=== PATIENT | female | born 1945 | race Caucasian/White ===

== ENCOUNTER → 2016-06-10 | Outpatient (CLI) | payer OTHER ==
[~2016-06-10] MED LIST: ALLO300T2 PO; CHOL100027 PO; CITA40TA4 PO; CLOB-65 EXT; COLCPOW6; DMD20 PO; GLC/500 PO; LETR2TAB PO; LEVO100T PO; LPR25 PO; METO5TAB25 PO; MULT-506 PO; POTA-327 PO; SIMV10TA2 PO; TYLENOL RAPID REL PO
--- NOTE | 2016-06-10 14:37 | MAMMOGRAPHY REPORT ---
UNILATERAL LEFT DIGITAL SCREENING MAMMOGRAM TOMOSYNTHESIS WITH CAD: 06/10/2016 CLINICAL HISTORY: Asymptomatic. Personal history of breast cancer. TECHNIQUE: Breast tomosynthesis in addition to standard 2D mammography was performed. Current study was also evaluated with a Computer Aided Detection (CAD) system. COMPARISON: Comparison is made to exams dated: 06/07/2015 mammogram, 06/06/2014 mammogram, 06/03/2013 mammogram, 01/08/2013 mammogram, 05/28/2011 mammogram, and 12/01/2009 mammogram - [facility]. BREAST COMPOSITION: There are scattered areas of fibroglandular density in the left breast. FINDINGS: There is evidence of prior reduction mammoplasty of the left breast. There are mild vascu lar calcifications and scattered benign coarse calcifications. However, there is a possible cluster of microcalcifications in the upper inner posterior (approximate 11:00) left breast for which addit ional spot magnification views are recommended. No other suspicious mass, architectural distortion or cluster of microcalcifications is seen. IMPRESSION: ACR BI-RADS CATEGORY 0: INCOMPLETE EVALUATION: NEED ADDITIONAL IMAGING EVALUATION The possible cluster of microcalcifications in the left 11:00 posterior breast needs additional eval uation. The patient will be called to schedule an appointment. Approximately 10% of breast cancers are not detected with mammography. A negative mammographic repor t should not delay biopsy if a clinically suggestive mass is present. Liliana El M.D. ay/:06/10/2016 09:33:06 Process Control Board Operator: Reina ALFARO)(Tushar), [facility] letter sent: Addl Imaging 0 BI-RADS Code: ACR BI-RADS Category 0: Incomplete Evaluation: Need Additional Imaging Evaluation
== END | disposition home or self-care (01) ==
LOC: C.MAMM 07:08
PROVIDERS: ATTEND Obstetrics & Gynecology
DX: Z12.31 Encounter for screening mammogram for malignant neoplasm of breast (principal); Z85.3 Personal history of malignant neoplasm of breast; Z90.11 Acquired absence of right breast and nipple; R92.8 Other abnormal and inconclusive findings on diagnostic imaging of breast

== ENCOUNTER → 2016-06-13 | Outpatient (CLI) | payer OTHER ==
--- NOTE | 2016-06-13 15:36 | MAMMOGRAPHY REPORT ---
UNILATERAL LEFT DIGITAL DIAGNOSTIC MAMMOGRAM: 06/13/2016 CLINICAL HISTORY: Callback from screening mammogram for left breast calcifications. History of redu ction mammoplasty. TECHNIQUE: Spot magnification left CC and ML views were obtained. COMPARISON: Comparison is made to exams dated: 06/10/2016 mammogram, 06/06/2014 mammogram, 06/07/2015 mammogram, 06/03/2013 mammogram, and 01/08/2013 mammogram - [facility]. BREAST COMPOSITION: There are scattered areas of fibroglandular density in the left breast. FINDINGS: Spot magnification views of the left breast demonstrate a small 3 mm cluster of at least 2 adjacent coarse calcifications in the left upper inner quadrant. The calcifications appear simila r to other scattered coarse benign-appearing calcifications in the left breast. Calcifications are probably benign and likely represent dystrophic calcifications related to the patient's prior reduct ion mammoplasty. Recommend follow-up diagnostic mammograms in 6 months to confirm stability, given the personal history of right breast cancer. IMPRESSION: ACR-BI-RADS CATEGORY 3: PROBABLY BENIGN Small cluster of coarse calcifications in the left upper inner quadrant is probably benign and likel y represent dystrophic calcifications related to prior reduction mammoplasty. Recommend follow-up d iagnostic mammograms of the left breast in 6 months to confirm stability on spot magnification views . The patient has been verbally notified of the results. Approximately 10% of breast cancers are not detected with mammography. A negative mammographic repor t should not delay biopsy if a clinically suggestive mass is present. Val De Oliveira M.D. ah/:06/13/2016 13:44:44 [employer]mediate School Teacher: Camille PAGAN(R)(Tushar), [facility] letter sent: Follow Up Recommended 3 BI-RADS Code: ACR-BI-RADS Category 3: Probably Benign
== END | disposition home or self-care (01) ==
LOC: C.MAMM 13:06
PROVIDERS: ATTEND Obstetrics & Gynecology
DX: R92.1 Mammographic calcification found on diagnostic imaging of breast (principal)

== ENCOUNTER → 2016-08-23 | Outpatient (CLI) | payer OTHER ==
[2016-08-23 12:10] LABS: BLOOD UREA NITROGEN 19 mg/dl (7-18); CARBON DIOXIDE 27 mmol/L (21-32); CHLORIDE 107 mmol/L (98-107); SODIUM 141 mmol/L (136-145)
[2016-08-23 12:13] LABS: CALCIUM 9.9 mg/dl (8.5-10.1)
[2016-08-23 12:43] LABS: ESTIMATED AVERAGE GLUCOSE 154 mg/dl; HA1C FLAG Normal (Normal)
[2016-08-23 12:47] LABS: URIC ACID 4.2 mg/dl (2.6-7.2)
[2016-08-23 12:54] LABS: ALB/GLOB RATIO 1.1 (0.9-2); AST/SGOT 117 U/L (15-37); BUN/CREATININE RATIO 19.5 (10-20); CREATININE 0.97 mg/dl (0.60-1.20)
[2016-08-23 13:05] LABS: HDL CHOLESTEROL 52 mg/dl
[2016-08-23 13:31] LABS: GLUCOSE 120 mg/dl (70-99)
[2016-08-23 13:44] LABS: ALKALINE PHOSPHATASE 100 U/L (45-117); ALT/SGPT 71 U/L (12-78); CHOLESTEROL 167 mg/dl (0-200); CHOLESTEROL/HDL RATIO 3.2; LDL CHOLESTEROL CALCULATED 96 mg/dl; THYROID STIMULATING HORMONE 0.067 uIu/ml (0.300-4.500); TRIGLYCERIDES 95 mg/dl (0-150)
== END | disposition home or self-care (01) ==
LOC: C.LABBFT 09:49
PROVIDERS: ATTEND Physician Assistant Medical
DX: M10.9 Gout, unspecified (principal); E11.9 Type 2 diabetes mellitus without complications; E03.9 Hypothyroidism, unspecified; E78.5 Hyperlipidemia, unspecified; Z11.59 Encounter for screening for other viral diseases

== ENCOUNTER → 2016-09-02 | Outpatient (CLI) | payer OTHER ==
--- NOTE | 2016-09-02 08:18 | DIAGNOSTIC IMAGING REPORT ---
ABDOMINAL ULTRASOUND, RIGHT UPPER QUADRANT HISTORY: Abnormal liver function tests. COMPARISON: Right upper quadrant ultrasound May 14, 2013 FINDINGS: Hepatic echogenicity is increased. No hepatic lesions are identified. There is fatty sparing within the gallbladder fossa. There is no biliary ductal dilatation. There are no gallstones. The pancreas is largely obscured by overlying bowel gas. There is no right hydronephrosis. IMPRESSION: 1. Fatty liver. 2. No gallstones or biliary ductal dilatation. 3. Largely obscured pancreas. Electronically signed by: Raleigh Wasserman M.D. 09/02/2016 8:16 AM Dictated Date/Time: 09/02/2016 8:15 AM
== END | disposition home or self-care (01) ==
LOC: C.ULTRBC 07:30
PROVIDERS: ATTEND Internal Medicine
DX: R79.89 Other specified abnormal findings of blood chemistry (principal)

== ENCOUNTER → 2016-12-12 | Outpatient (CLI) | payer OTHER ==
--- NOTE | 2016-12-12 12:41 | MAMMOGRAPHY REPORT ---
UNILATERAL LEFT DIGITAL DIAGNOSTIC MAMMOGRAM TOMOSYNTHESIS WITH CAD: 12/12/2016 CLINICAL HISTORY: Six-month follow-up of left breast calcifications. History of left reduction mammo plasty and right mastectomy. TECHNIQUE: Breast tomosynthesis in addition to standard 2D mammography was performed. Current study was also evaluated with a Computer Aided Detection (CAD) system. Left CC and MLO 2-D and tomosynthes is images and spot magnification left CC and ML views were obtained. COMPARISON: Comparison is made to exams dated: 06/13/2016 mammogram, 06/10/2016 mammogram, 06/07/2015 ma mmogram, 06/06/2014 mammogram, 06/03/2013 mammogram, and 01/19/2013 ultrasound biopsy - [facility]. BREAST COMPOSITION: The tissue of the left breast is heterogeneously dense, which may obscure small masses. FINDINGS: There has been no significant interval change in the left breast compared to prior exams. Spot magnification views of the left breast demonstrate a small cluster of 2-3 adjacent coarse benig n-appearing calcifications in the left upper inner quadrant. The calcifications are stable on spot m agnification views dated 06/13/2016 and are probably benign and likely represent dystrophic calcificati ons related to prior reduction mammoplasty. The remainder of the left breast is also stable, without suspicious masses, calcifications, or areas of architectural distortion. There are stable postsurgical changes from reduction mammoplasty. Othe r scattered benign-appearing calcifications are unchanged. An 11 mm asymmetry is seen within the lef t lateral breast on the cc view, which has the appearance of normal fibroglandular tissue on the beverly synthesis images and appears similar to some of the prior exams including the 2014 exam. IMPRESSION: ACR-BI-RADS CATEGORY 3: PROBABLY BENIGN Small cluster of benign-appearing calcifications in the left upper inner quadrant is stable compared to the June 2016 exam and likely represents dystrophic calcifications related to prior reduction joan moplasty. Recommend follow-up diagnostic tomosynthesis mammograms of the left breast in 6 months to confirm 1 year of stability of the calcifications. The patient has been verbally notified of the results. Approximately 10% of breast cancers are not detected with mammography. A negative mammographic report should not delay biopsy if a clinically suggestive mass is present. Val De Oliveira M.D. /:12/12/2016 08:50:57 Inspectors And Regulatory Officers: Debra Lizarraga RT(R)(M), [facility] letter sent: Follow Up Recommended 3 BI-RADS Code: ACR-BI-RADS Category 3: Probably Benign
== END | disposition home or self-care (01) ==
LOC: C.MAMM 08:15
PROVIDERS: ATTEND Obstetrics & Gynecology
DX: R92.1 Mammographic calcification found on diagnostic imaging of breast (principal)

== ENCOUNTER → 2017-01-09 | Outpatient (CLI) | payer OTHER ==
[2017-01-10 07:06] LABS: ESTIMATED AVERAGE GLUCOSE 148 mg/dl; HA1C FLAG Normal (Normal)
--- NOTE | 2017-01-15 06:25 | CODING QUERY MEDICAL NECESSITY ---
SUPPORTING DIAGNOSIS NEEDED Dr. Mcclelland, A supporting diagnosis is required for the test/procedure performed on this patient in order for us to be reimbursed by the patient's insurance. Please provide a supporting diagnosis for the following test/procedure listed below next to the test name along with your signature. *If there is no additional diagnosis for this patient that would support the following test/procedure please document that below next to the test/procedure. Test(s)/Procedure(s) that require a supporting diagnosis: * ([id number]) VITAMIN D ASSAY DIAGNOSIS: DATE OF SERVICE: 01/09/17 Provider Signature: Date: Thank you Spencer Moreno [facility] Information Management Once completed, please kindly fax back to [phone] For questions please call [phone]
== END | disposition home or self-care (01) ==
LOC: C.LABBFT 13:05
PROVIDERS: ATTEND Internal Medicine
DX: E11.9 Type 2 diabetes mellitus without complications (principal); E03.9 Hypothyroidism, unspecified

== ENCOUNTER → 2017-02-25 | Outpatient (CLI) | payer OTHER | END | disposition home or self-care (01) | LOC: C.LAB 09:43 | PROVIDERS: ATTEND Internal Medicine | DX: E03.9 Hypothyroidism, unspecified (principal) ==

== ENCOUNTER → 2017-04-23 | Outpatient (CLI) | payer OTHER ==
[2017-04-23 13:42] LABS: BASO % 3.2 %; BASO ABS # 0.16 K/uL (0-0.2); EOS ABS # 0.55 K/uL (0-0.5); HEMATOCRIT 35.6 % (37-47); LYMPH % 30.7 %; LYMPH ABS # 1.54 K/uL (1.2-3.4); MEAN CELL VOLUME 83.2 fL (80-100); MEAN CORPUSCULAR HEMOGLOBIN 25.7 pg (25-34); MEAN CORPUSCULAR HGB CONC 30.9 g/dl (32-36); MEAN PLATELET VOLUME 11.1 fL (7.4-10.4); MONO % 7.8 %; MONO ABS # 0.39 K/uL (0.11-0.59); NEUT % 47.3 %; NEUT ABS # 2.37 K/uL (1.4-6.5); PLATELET COUNT 269 K/uL (130-400); RED CELL DISTRIBUTION WIDTH CV 15.3 % (11.5-14.5); RED CELL DISTRIBUTION WIDTH SD 46.5 fL (36.4-46.3); WHITE BLOOD COUNT 5.01 K/uL (4.8-10.8)
[2017-04-23 14:25] LABS: ALBUMIN 3.6 gm/dl (3.4-5.0); ALT/SGPT 37 U/L (12-78); AST/SGOT 56 U/L (15-37); BLOOD UREA NITROGEN 13 mg/dl (7-18); CALCIUM 9.4 mg/dl (8.5-10.1); CARBON DIOXIDE 29 mmol/L (21-32); GLUCOSE 101 mg/dl (70-99); POTASSIUM 4.1 mmol/L (3.5-5.1); SODIUM 140 mmol/L (136-145)
[2017-04-23 14:35] LABS: ALKALINE PHOSPHATASE 104 U/L (45-117); CHOLESTEROL 150 mg/dl (0-200); LDL CHOLESTEROL CALCULATED 67 mg/dl; TOTAL PROTEIN 7.3 gm/dl (6.4-8.2)
[2017-04-24 05:56] LABS: HEMOGLOBIN A1C 6.8 % (4.5-5.6)
== END | disposition home or self-care (01) ==
LOC: C.LABBC 10:02
PROVIDERS: ATTEND Internal Medicine
DX: I10 Essential (primary) hypertension (principal); E03.9 Hypothyroidism, unspecified; Z87.19 Personal history of other diseases of the digestive system; E11.9 Type 2 diabetes mellitus without complications; E78.5 Hyperlipidemia, unspecified; E55.9 Vitamin D deficiency, unspecified; M10.9 Gout, unspecified; I67.1 Cerebral aneurysm, nonruptured; R13.10 Dysphagia, unspecified

== ENCOUNTER → 2017-05-28 | Outpatient (CLI) | payer OTHER ==
[2017-05-28 12:44] LABS: BLOOD UREA NITROGEN 15 mg/dl (7-18); CREATININE 0.98 mg/dl (0.60-1.20); GLUCOSE 116 mg/dl (70-99)
[2017-05-28 12:45] LABS: ALBUMIN 3.5 gm/dl (3.4-5.0); ALT/SGPT 30 U/L (12-78); AST/SGOT 39 U/L (15-37); CALCIUM 9.4 mg/dl (8.5-10.1); CARBON DIOXIDE 28 mmol/L (21-32); SODIUM 138 mmol/L (136-145)
[2017-05-28 12:47] LABS: ALKALINE PHOSPHATASE 107 U/L (45-117); TOTAL PROTEIN 7.1 gm/dl (6.4-8.2); TRANSFERRIN 379 mg/dl (200-360)
--- NOTE | 2017-07-18 06:29 | CODING QUERY MEDICAL NECESSITY ---
CQSUPPORTING DIAGNOSIS NEEDED A supporting diagnosis is required for the test/procedure performed on this patient in order for us to be reimbursed by the patient's insurance. Please provide a supporting diagnosis for the following test/procedure listed below next to the test name along with your signature. *If there is no additional diagnosis for this patient that would support the following test/procedure please document that below next to the test/procedure. Test(s)/Procedure(s) that require a supporting diagnosis: DOS 05/28/17 VITAMIN B12 TEST FOLIC ACID TEST Provider Signature: Date: Thank you Lisa [facility] Information Management Once completed, please kindly fax back to [phone] For questions please call [phone]
== END | disposition home or self-care (01) ==
LOC: C.LABBFT 08:50
PROVIDERS: ATTEND Internal Medicine
DX: I10 Essential (primary) hypertension (principal); D64.9 Anemia, unspecified

== ENCOUNTER → 2017-06-26 | Outpatient (CLI) | payer OTHER ==
--- NOTE | 2017-06-26 15:16 | MAMMOGRAPHY REPORT ---
UNILATERAL LEFT DIGITAL DIAGNOSTIC MAMMOGRAM TOMOSYNTHESIS: 06/26/2017 CLINICAL HISTORY: Short interval follow-up of left breast calcifications. History of left reduction mammoplasty and right mastectomy. TECHNIQUE: Breast tomosynthesis in addition to standard 2D mammography was performed. Left CC and M LO 2D and tomosynthesis images and spot magnification left CC and ML views were obtained. COMPARISON: Comparison is made to exams dated: 12/12/2016 mammogram, 06/13/2016 mammogram, 06/10/2016 ma mmogram, 06/07/2015 mammogram, 06/06/2014 mammogram, and 06/03/2013 mammogram - [facility]. BREAST COMPOSITION: The tissue of the left breast is heterogeneously dense, which may obscure small masses. FINDINGS: Spot magnification views of the left breast again demonstrate a small 3 mm cluster of 3 coa rse benign-appearing calcifications in the left upper inner quadrant. The calcifications are stable on magnification views dating back to June 2016, and are considered benign given the morphology and stability and likely represent dystrophic calcifications related to the prior reduction mammoplasty. The remainder of the left breast is stable compared to prior exams, without suspicious masses, calcif ications, or areas of architectural distortion noted. There are stable postsurgical changes from red uction mammoplasty. A linear scar marker denotes a scar on the left lower inner breast. Other scatt ered benign-appearing left breast calcifications are stable. IMPRESSION: ACR BI-RADS CATEGORY 2: BENIGN Small cluster of 3 coarse benign-appearing calcifications in the left upper outer quadrant is stable dating back to the June 2016 exam and considered benign given the morphology and stability. There i s no mammographic evidence of malignancy. A 1 year screening mammogram of the left breast is recommen ded. The patient has been verbally notified of the results. Approximately 10% of breast cancers are not detected with mammography. A negative mammographic report should not delay biopsy if a clinically suggestive mass is present. Val De Oliveira M.D. /:06/26/2017 11:03:57 Referral Specialist: Camille Wheatley, [facility] letter sent: Normal 1/2 BI-RADS Code: ACR BI-RADS Category 2: Benign
== END | disposition home or self-care (01) ==
LOC: C.MAMM 10:18
PROVIDERS: ATTEND Internal Medicine
DX: R92.1 Mammographic calcification found on diagnostic imaging of breast (principal); Z90.11 Acquired absence of right breast and nipple; Z98.890 Other specified postprocedural states

== ENCOUNTER → 2017-06-27 | Outpatient (CLI) | payer OTHER ==
--- NOTE | 2017-06-27 16:01 | DIAGNOSTIC IMAGING REPORT ---
CHEST 2 VIEWS ROUTINE CLINICAL HISTORY: R05 Chronic cough dyspnea COMPARISON STUDY: 05/24/2013 FINDINGS: The bones soft tissues and hemidiaphragms are normal. The cardiomediastinal silhouette is normal. The lungs are clear. The pulmonary vasculature is normal. IMPRESSION: Negative chest. The above report was generated using voice recognition software. It may contain grammatical, syntax or spelling errors. Electronically signed by: Evelio Meza M.D. 06/27/2017 3:59 PM Dictated Date/Time: 06/27/2017 3:59 PM
== END | disposition home or self-care (01) ==
LOC: C.RADBC 14:59
PROVIDERS: ATTEND Family Medicine Adult Medicine
DX: R05 Cough (principal)

== ENCOUNTER → 2017-11-18 | Outpatient (CLI) | payer OTHER ==
[~2017-11-18] MED LIST changes: +ASPI-435 PO; +CITA20TA4 PO; -CITA40TA4 PO; -CLOB-65 EXT; -COLCPOW6; -DMD20 PO; +FMR25 PO; +FRRS300 PO; -LETR2TAB PO; -LEVO100T PO; +LEVO88TA3 PO; -METO5TAB25 PO; +NITR100C6 PO; +OMEP-331 PO; -POTA-327 PO; +RAMI5CAP PO; +TORS20TA2 PO; +TPRSR/25 PO; -TYLENOL RAPID REL PO
== END | disposition home or self-care (01) ==
LOC: C.LABBFT 10:38
PROVIDERS: ATTEND Internal Medicine
DX: N39.0 Urinary tract infection, site not specified (principal)

== ENCOUNTER 2017-11-19 13:42 | Emergency (ER) | payer OTHER ==
[~2017-11-19] VITALS: Ht 162.6 cm; Wt 95.6 kg
[~2017-11-19 13:42] MED LIST changes: -NITR100C6 PO; -TPRSR/25 PO
[2017-11-19 13:58] VITALS: TEMP 37.6; Ht 162.6 cm; Wt 95.6 kg
[2017-11-19] MEDS ORDERED: FENTANYL CITRATE INJ 50 MCG/1 ML 2 ML VIAL IV STA (14:10)
[2017-11-19] MEDS ORDERED: ONDANSETRON INJ 2 MG/ML 2 ML VIAL IV STA ×3 (14:10→17:07)
[2017-11-19] MEDS ORDERED: SODIUM CHLORIDE 0.9% 1000ML 1,000 ML IV STA (14:10)
[2017-11-19 14:28] LABS: BASO % 0.3 %; BASO ABS # 0.05 K/uL (0-0.2); EOS % 2.4 %; EOS ABS # 0.41 K/uL (0-0.5); HEMOGLOBIN 11.7 g/dL (12.0-16.0); IG# 0.08 K/uL (0.00-0.02); LYMPH % 8.1 %; MEAN CELL VOLUME 87.1 fL (80-100); MEAN CORPUSCULAR HEMOGLOBIN 29.1 pg (25-34); MEAN CORPUSCULAR HGB CONC 33.4 g/dl (32-36); MEAN PLATELET VOLUME 10.5 fL (7.4-10.4); MONO % 5.8 %; NEUT % 82.9 %; PLATELET COUNT 273 K/uL (130-400); RED CELL DISTRIBUTION WIDTH CV 14.2 % (11.5-14.5); WHITE BLOOD COUNT 17.24 K/uL (4.8-10.8)
[2017-11-19] MEDS ORDERED: OPTIRAY 320 IV PRN (14:30)
[2017-11-19 14:38] LABS: PTT PATIENT 22.2 SECONDS (21.0-31.0)
[2017-11-19 14:54] LABS: ALBUMIN 3.3 gm/dl (3.4-5.0); ALKALINE PHOSPHATASE 98 U/L (45-117); ALT/SGPT 28 U/L (12-78); AST/SGOT 40 U/L (15-37); BLOOD UREA NITROGEN 15 mg/dl (7-18); CALCIUM 8.6 mg/dl (8.5-10.1); CARBON DIOXIDE 23 mmol/L (21-32); CREATININE 0.88 mg/dl (0.60-1.20); GLUCOSE 130 mg/dl (70-99); POTASSIUM 3.6 mmol/L (3.5-5.1); SODIUM 135 mmol/L (136-145)
[2017-11-19 15:20] LABS: ISTAT CREATININE 0.8 mg/dl (0.6-1.3); ISTAT IONIZED CALCIUM 1.1 mmol/l (1.12-1.32); ISTAT POTASSIUM 3.7 mEq/L (3.3-5.0)
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
[2017-11-19] MEDS ORDERED: FENTANYL CITRATE INJ 50 MCG/1 ML 2 ML VIAL IV ONE ×2 (16:00→17:15)
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
[2017-11-19] MEDS ORDERED: NITR100C6 PO (16:54)
[2017-11-19] MEDS ORDERED: TPRSR/25 PO (16:54)
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
[2017-11-19 18:07] VITALS: O2SAT 97
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
[2017-11-19] MEDS ORDERED: ACETAMINOPHEN IV 100 ML IV ONE (18:30)
[2017-11-19 18:40] VITALS: BP 145/70; PULSE 76; O2SAT 98
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
== END 2017-11-19 18:58 | disposition short-term general hospital (02) ==
LOC: EDBD 13:42 → C.EDB 13:42
DX: S72.001A Fracture of unspecified part of neck of right femur, initial encounter for closed fracture (principal); S52.91XA Unspecified fracture of right forearm, initial encounter for closed fracture; S30.1XXA Contusion of abdominal wall, initial encounter; V44.6XXA Car passenger injured in collision with heavy transport vehicle or bus in traffic accident, initial encounter; Y92.410 Unspecified street and highway as the place of occurrence of the external cause; E11.9 Type 2 diabetes mellitus without complications; I10 Essential (primary) hypertension; I44.7 Left bundle-branch block, unspecified; M10.9 Gout, unspecified; E78.5 Hyperlipidemia, unspecified; Z85.3 Personal history of malignant neoplasm of breast; Z79.82 Long term (current) use of aspirin; Z79.84 Long term (current) use of oral hypoglycemic drugs; Z79.899 Other long term (current) drug therapy; Z91.048 Other nonmedicinal substance allergy status; Z88.8 Allergy status to other drugs, medicaments and biological substances

== ENCOUNTER 2023-01-15 10:51 | Observation (INO) ==
[2023-01-15] MEDS ORDERED: ONDANSETRON INJ 2 MG/ML 2 ML VIAL IV STA ×2 (11:04→13:45)
[2023-01-15] MEDS ORDERED: SODIUM CHLORIDE 0.9% 500 ML IV SCH (11:15)
--- NOTE | 2023-01-15 11:28 | Emergency Department Note ---
ED Visit Note Saw patient in conjunction with Dr. Dubon. For more details, please refer to their note. . Resident Activity Tracking Resident Involvement: Resident Care Provided Care Provided: Adult ED
[2023-01-15] MEDS ORDERED: LABETALOL HCL IV 5 MG/ML 20ML IV STA ×2 (11:54→13:15)
[2023-01-15 12:03] LABS: Basophils # (auto) 0.13 K/uL (0.00-0.20); Basophils % (auto) 1.6 %; Eosinophils # (auto) 0.09 K/uL (0.00-0.50); Eosinophils % (auto) 1.1 %; Hematocrit (blood only) 42.2 % (37.0-47.0); Hemoglobin 14.7 g/dl (12.0-16.0); Immature Granulocytes # (auto) 0.03 K/uL (0.01-0.20); Immature Granulocytes % (auto) 0.4 %; Lymphocytes # (auto) 1.51 K/uL (1.20-3.40); Lymphocytes % (auto) 18.5 %; Mean Corpuscular Hemoglobin 30.9 pg (25.0-34.0); Mean Corpuscular Hgb Conc 34.8 g/dL (32.0-36.0); Mean Corpuscular Volume 88.7 fL (80.0-100.0); Mean Platelet Volume 11.1 fL (9.4-12.4); Monocytes # (auto) 0.55 K/uL (0.11-0.59); Monocytes % (auto) 6.7 %; Neutrophils # (auto) 5.87 K/uL (1.40-6.50); Neutrophils % (auto) 71.7 %; Platelet Count 292 K/uL (130-400); RDW Standard Deviation 45.8 fL (36.4-46.3); Red Blood Count 4.76 M/uL (4.20-5.40); White Blood Count 8.18 K/ul (4.8-10.8)
[2023-01-15 12:19] LABS: Albumin Globulin Ratio 1.4 (0.9-2); Albumin Level 4.6 gm/dl (3.4-5.0); BUN Creatinine Ratio 8.7 (10-20); Bilirubin,Total 0.9 mg/dl (0.2-1.0); Calcium 10.7 mg/dl (8.6-10.3); Creatinine Clr Calc Pharmacy 46.4 ml/min; Est GFR (African American) 60.4 ml/min; Est GFR (Non-African American) 52.1 ml/min; Globulin 3.3 gm/dl (2.5-4.0); Magnesium 1.8 mg/dl (1.7-2.4); Potassium 3.1 mmol/L (3.5-5.1); Total Protein 7.9 gm/dl (6.0-8.3)
--- NOTE | 2023-01-15 12:24 | XRay Report ---
SINGLE VIEW CHEST CLINICAL HISTORY: Generalized weakness. FINDINGS: An AP, portable, upright chest radiograph is compared to study dated 12/30/2017. The heart i s enlarged noting atherosclerotic calcification of the thoracic aorta. The pulmonary vasculature is c ongested. Chronic residual thickening is similar to previous. The lungs and pleural spaces are clear. No pneumothorax is seen. The skeletal structures are osteopenic. The bony thorax is grossly intact. IMPRESSION: Cardiomegaly with no active disease in the chest. ACT 112: Negative or not required by law. Electronically signed by: Raul Suresh M.D. 01/15/2023 12:22 PM
[2023-01-15 12:26] LABS: Troponin I High Sensitivity 30.4 pg/ml (0-14)
[2023-01-15] MEDS ORDERED: POTASSIUM CHLORIDE / WTR 10 MEQ/100 ML PLCT IV ONE (12:32)
--- NOTE | 2023-01-15 12:37 | Emergency Department Note ---
Impression & Plan Severe hypertension, Nausea & vomiting, Elevated troponin, Headache ED Provider Note INFORMANT: Patient ED PROVIDER(S): Kunal Dubon MD CHIEF COMPLAINT: Dehydration PLAN: Disposition: Admitted Outpatient prescription management: None Referral: None MEDICAL DECISION MAKING: Patient presented because of dehydration and vomiting. Her blood pressure was very high and this was concerning. Patient did have a mild headache. IV was established. ECG was performed. Patient does have a left bundle branch block. This is old. The patient had blood work obtained and her CBC and chemistry panels were unremarkable. Her troponin is mildly elevated and the patient does have an elevated TSH. She does have a history of hypothyroidism. Patient underwent head CT imaging after receiving IV labetalol, Zofran. Patient was given IV Tylenol and an additional dose of IV labetalol. Patient was feeling s omewhat better but then had increased nausea after moving around for CT imaging. She was given second dose of IV Zofran. In light of her symptoms the patient will need further management in the hospital. Head CT and CT scan of the abdomen and pelvis did not reveal any acute pathology. Consultation was made with Dr. Albert of the [facility] service. Patient was evaluated in the ER and admitted for further management Care/management discussed with: clerical manager Level of care consideration(s): After review of the information above and other included data, I feel the patient requires admission Triage Nursing notes: reviewed and agree them. Vital Signs: reviewed and remarkable for severe hypertension Additional History obtained from: none Chronic Medical/Social Conditions affecting care: Hypertension, CKD Prior /Outside records reviewed: none Differential Diagnosis: Etiologies such as gastroenteritis, food borne illness, infections, appendicitis, diverticulitis, inflammatory bowel disease, GI bleed, biliary pathology, hypertensive emergency, dehydration, cardiac pathology, as well as others were entertained. Diagnostics, independently interpreted by me: ECG: Twelve-lead ECG reveals a normal sinus rhythm at 83 bpm. Left axis deviation and left bundle branch block. No significant change from prior study.. Cardiac Monitoring: Cardiac monitoring ordered by me: The patient was placed on continuous cardiac monitoring and observed. It revealed a normal sinus rhythm at 73 beats per minute without ectopy or evidence of dysrhythmia. Medical decision rules: none Imaging studies: CT scan of the head as well as CT scan of the abdomen pelvis is negative for acute pathology. Specifically no obstruction. HPI: The patient is a 77-year-old female who arrives for evaluation of dehydr ation. Patient states she has been having nausea and vomiting for the last 2 days. She has not been able to take her home medications including her blood pressure medicine. Patient notes a mild runny nose and cough. 2 weeks ago the patient had pain medicine prescribed by her orthopedist. She noted getting nauseated after that. She thought maybe the medication and stopped. She had some improvement but had nausea persist. Patient noted a headache this morning. Pt denies LOC, fevers, chills, diaphoresis, visual changes, neck pain, chest pain, breathing difficulties, abdominal pain, back pain, melena, hematochezia, urinary symptoms, numbness, weakness, lymphadenopathy, rash, or other co mplaints. PAST MEDICAL HISTORY: See Below, hypertension PAST SURGICAL HISTORY: See Below, SOCIAL HISTORY: See Below, retired HOME MEDICATIONS: See Below ALLERGIES: See Below VITALS: See Below PHYSICAL EXAMINATION: GENERAL: Awake, alert, uncomfortable-appearing, in no distress HENT: Normocephalic, atraumatic. Oropharynx unremarkable. EYES: Normal conjunctiva. Sclera non-icteric. PERRLA. EOMI. NECK: Inspection normal. Non-tender. Supple. No nuchal rigidity. FROM. No masses. RESPIRATORY: Clear to auscultation. No wheezes. No rales. Normal respiratory effort. CARDIAC: Normal rate. Normal rhythm. No murmurs. No rubs. Extremities warm and well perfused. Pulses equal. No JVD. GI: Soft, non-distended. No tenderness to palpation. No rebound or guarding. No masses. RECTAL: Deferred. MUSCULOSKELETAL: Atraumatic. Chest examination reveals no tenderness. The back is symmetrical on inspection without obvious abnormality. There is no CVA tenderness to palpation. No joint edema. LOWER EXTREMITIES: Calves are equal size bilaterally and non-tender. No edema. No discoloration. NEURO: Normal sensorium. No sensory or motor deficits noted. Cranial nerves II through XII intact. No drift. SKIN: No rash or jaundice noted. PROCEDURES: none CRITICAL CARE: I have personally spent 30 minutes of critical care time in the direct management of this patient. This includes bedside care, interpretation of diagnostic studies, and testing, discussion with consultants, patient, and family members, and other required patient management activities. These minutes are in excess of all separately billable procedures. OBSERVATION NOTE: none Past Med/Surg History Medical History Aneurysm, cerebral Anxiety Arrhythmia (02/17/13) Basilar artery aneurysm Borderline diabetes Bundle branch block, left Chronic foot pain CKD (chronic kidney disease), stage III Constipation Depression Diabetes DVT prophylaxis Edema GERD (gastroesophageal reflux disease) Gout History of breast cancer History of colon polyps Hyperparathyroidism Hypertension Hypothyroidism Lichen sclerosus et atrophicus Lower extremity edema Microalbuminuria due to type 2 diabetes mellitus Mood disorder Normochromic normocytic anemia Obesity (BMI 30-39.9) Obstructive sleep apnea Osteoarthritis Peripheral neuropathy Posttraumatic wound infection Ptosis, left Rectal carcinoid tumor Restless legs syndrome Skin lesion of breast SOB (shortness of breath) on exertion Stomach ulcer Traumatic hematoma of lower leg with infection Traumatic open wound of right lower leg with delayed healing Tremor Urinary incontinence Venous insufficiency of both lower extremities Vitamin D deficiency Vomiting Surgical History H/O cataract removal with insertion of prosthetic lens History of arthroscopy History of breast reconstruction History of colonoscopy History of left knee replacement (~2013) History of open reduction and internal fixation (ORIF) procedure History of open reduction and internal fixation (ORIF) procedure History of right knee joint replacement (~2006) Hx of total hip arthroplasty S/P appendectomy (~1959) S/P hysterectomy (~1995) S/P mastectomy (03/01/13) Family History Father Aneurysm of thoracic aorta Hypertension Prostate cancer Mother Hyperlipidemia Hypertension Unknown Hyperthyroidism Hypertension Uncle Family history of diabetes mellitus Myocardial infarction Diabetes Stroke Aunt Breast cancer Sister Breast cancer Hyperthyroidism Detached retina Other Family history non-contributory Denies family history of Ovarian cancer Lung cancer Colorectal cancer Social History Smoking Status: Never smoker Second Hand Exposure: No; Do You Dip or Chew Tobacco: No; Hx Alcohol Use: Yes Alcohol type: beer and wine Alcohol Intake Frequency: Monthly or Less Hx Substance Use: No Preferred Language: Greek Communication Ability: Effective Visual Impairment: Limited Hearing Ability: Normal Candy Catcher Required: No Beliefs That Will Affect Care: None marital status: Current Living Situation: Spouse Current Living Situation Comment: At home current occupational status: employed current occupation: Tutor Assignment in [place] How many Children do You have: 2 Feels Safe at Home: Yes Childhood Exposure to Second-Hand Smoke: Yes caffeine: Yes Dental Care, Regularly: No Physical Activity Frequency: Does not Exercise Seatbelt Use: always Sunscreen Use: Yes Assistive Devices: CPAP, Denture - Upper, Denture - Lower and Glasses Allergies Allergies Allergy/AdvReac Type Severity Reaction Status Date / Time diltiazem Allergy Mild RASH Verified 12/11/22 09:05 fluoxetine Allergy Mild RASH Verified 12/11/22 09:05 valsartan Allergy Mild SHORTNESS Verified 12/11/22 09:05 OF BREATH adhesive Allergy Unknown RASH WITH Verified 12/11/22 09:05 BANDAIDS cat dander Allergy Unknown Unknown Verified 12/11/22 09:05 ragweed pollen Allergy Unknown NASAL Verified 12/11/22 09:05 IRRITATION,STUFFINESS tree and shrub pollen Allergy Unknown BIRCH Verified 12/11/22 09:05 TREES-CONGESTION ramipril Allergy Cough Verified 12/11/22 09:05 onion AdvReac Unknown RAW-GI Verified 12/11/22 09:05 UPSET BANDAIDS Allergy Mild ITCHING, Uncoded 12/11/22 09:05 REDDENED SKIN Home Meds Home Medications Medication Instructions Recorded Confirmed aspirin 81 mg tablet,delayed 81 mg PO HS 12/30/17 01/15/23 release (Aspir-) cholecalciferol (vitamin D3) 25 1,000 unit PO QAM 12/30/17 01/15/23 mcg (1,000 unit) capsule (Vitamin D3) letrozole 2.5 mg tablet 2.5 mg PO QPM 12/30/17 01/15/23 acetaminophen 500 mg tablet 1,000 mg PO HS PRN Restless Leg(S) 10/07/18 01/15/23 (Tylenol Extra Strength) biotin 1 mg capsule 1 mg PO QAM 10/07/18 01/15/23 clobetasol 0.05 % lotion 1 applic topical BID PRN Rash 10/07/18 01/15/23 inulin 2 gram chewable tablet 2 g PO QAM 10/07/18 01/15/23 (Fiber Gummies) metformin 500 mg tablet,extended 500 mg PO BID 12/11/22 01/15/23 release 24 hr Multivitamin Gummies 2 ea PO DAILY 01/15/23 01/15/23 allopurinol 300 mg tablet 300 mg PO PM 01/15/23 01/15/23 citalopram 20 mg tablet 20 mg PO BID 01/15/23 01/15/23 torsemide 20 mg tablet 20 mg PO DAILY 01/15/23 01/15/23 Previous Rx's Medication Instructions Recorded omeprazole 20 mg tablet,delayed 20 mg PO DAILY #90 tabs 01/15/22 release simvastatin 10 mg tablet 10 mg PO QPM #90 tabs 07/09/22 losartan 50 mg tablet 50 mg PO QAM #90 tabs 07/31/22 levothyroxine 112 mcg tablet 112 mcg PO DAILY #90 tabs 10/03/22 metoprolol succinate 25 mg 25 mg PO BID #180 tabs 10/03/22 tablet,extended release 24 hr alprazolam 0.5 mg tablet (Xanax) 0.5 mg PO .COMPLEX #2 tabs 12/11/22 Results & Data (ED) Vital Signs Vital Signs - 24 hr 01/15/23 10:53 01/15/23 11:05 01/15/23 11:30 Temperature 36.6 C Temperature Source Temporal Artery Scan Pulse Rate 96 H 81 80 Pulse Rate [Apical] Pulse Rate from SpO2 Sensor 79 Respiratory Rate 20 18 16 Respiratory Effort / Characteristics Non-Labored Respiratory Depth Normal Respiratory Pattern Blood Pressure 216/133 H 220/127 H Blood Pressure [Left Arm] Blood Pressure Mean 160 158 Blood Pressure Mean [Left Arm] Blood Pressure Position [Left Arm] Pulse Oximetry 95 95 96 Oxygen Delivery Method Room Air Room Air Room Air Sepsis Recent Fever Within 48 Hours No Sepsis New/Unexplained Change in Mental Status No Sepsis Action Taken by Nursing No Action Required 01/15/23 12:01 01/15/23 13:21 01/15/23 12:00 Temperature Temperature Source Pulse Rate 78 76 81 Pulse Rate [Apical] Pulse Rate from SpO2 Sensor 79 Respiratory Rate 14 Respiratory Effort / Characteristics Respiratory Depth Respiratory Pattern Blood Pressure 205/116 H 202/110 H 205/116 H Blood Pressure [Left Arm] Blood Pressure Mean 145 Blood Pressure Mean [Left Arm] Blood Pressure Position [Left Arm] Pulse Oximetry 92 Oxygen Delivery Method Room Air Sepsis Recent Fever Within 48 Hours Sepsis New/Unexplained Change in Mental Status Sepsis Action Taken by Nursing 01/15/23 12:05 01/15/23 12:23 01/15/23 12:34 Temperature Temperature Source Pulse Rate 85 76 Pulse Rate [Apical] Pulse Rate from SpO2 Sensor 85 Respiratory Rate 14 Respiratory Effort / Characteristics Respiratory Depth Respiratory Pattern Blood Pressure 192/125 H 198/130 H 185/107 H Blood Pressure [Left Arm] Blood Pressure Mean 147 150 Blood Pressure Mean [Left Arm] Blood Pressure Position [Left Arm] Pulse Oximetry 91 Oxygen Delivery Method Room Air Room Air Sepsis Recent Fever Within 48 Hours Sepsis New/Unexplained Change in Mental Status Sepsis Action Taken by Nursing 01/15/23 12:30 01/15/23 12:48 01/15/23 13:12 Temperature Temperature Source Pulse Rate 74 78 Pulse Rate [Apical] 72 Pulse Rate from SpO2 Sensor 74 Respiratory Rate 12 18 Respiratory Effort / Characteristics Non-Labored Spontaneous Respiratory Depth Normal Respiratory Pattern Regular Blood Pressure 185/107 H Blood Pressure [Left Arm] 188/99 H Blood Pressure Mean 133 Blood Pressure Mean [Left Arm] 128 Blood Pressure Position [Left Arm] Semi-fowlers Pulse Oximetry 97 95 Oxygen Delivery Method Room Air Room Air Sepsis Recent Fever Within 48 Hours Sepsis New/Unexplained Change in Mental Status Sepsis Action Taken by Nursing Laboratory Data 01/15/23 11:13 01/15/23 11:13 Lab Results 01/15/23 01/15/23 01/15/23 Range/Units 11:13 11:13 11:34 WBC 8.18 (4.8-10.8) K/ul RBC 4.76 (4.20-5.40) M/uL Hgb 14.7 (12.0-16.0) g/dl Hct 42.2 (37.0-47.0) % MCV 88.7 (80.0-100.0) fL MCH 30.9 (25.0-34.0) pg MCHC 34.8 (32.0-36.0) g/dL RDW Std Deviation 45.8 (36.4-46.3) fL RDW Coeff of Dalia 14.0 (11.5-14.5) % Plt Count 292 (130-400) K/uL MPV 11.1 (9.4-12.4) fL Immature Gran % (Auto) 0.4 % Neut % (Auto) 71.7 % Lymph % (Auto) 18.5 % [place] % (Auto) 6.7 % Eos % (Auto) 1.1 % Baso % (Auto) 1.6 % Neut # (Auto) 5.87 (1.40-6.50) K/uL Lymph # (Auto) 1.51 (1.20-3.40) K/uL [place] # (Auto) 0.55 (0.11-0.59) K/uL Eos # (Auto) 0.09 (0.00-0.50) K/uL Baso # (Auto) 0.13 (0.00-0.20) K/uL Immature Gran # (Auto) 0.03 (0.01-0.20) K/uL Sodium 138 (136-145) mmol/L Potassium 3.1 L (3.5-5.1) mmol/L Chloride 99 (98-107) mmol/L Carbon Dioxide 28 (21-32) mmol/L Anion Gap 11 (3-11) BUN 9 (6-23) mg/dl Creatinine 1.04 (0.6-1.2) mg/dl Est Cr Clr Drug Dosing 46.4 ml/min Est GFR ( Amer) 60.4 ml/min Est GFR (Non-Af Amer) 52.1 ml/min BUN/Creatinine Ratio 8.7 L (10-20) Glucose 152 H (70-99(Fasting)) mg/dl Calcium 10.7 H (8.6-10.3) mg/dl Magnesium 1.8 (1.7-2.4) mg/dl Total Bilirubin 0.9 (0.2-1.0) mg/dl AST 24 (13-39) U/L ALT 16 (7-52) U/L Alkaline Phosphatase 176 H (34-104) U/L Troponin I High Sens 30.4 H (0-14) pg/ml Total Protein 7.9 (6.0-8.3) gm/dl Albumin 4.6 (3.4-5.0) gm/dl Globulin 3.3 (2.5-4.0) gm/dl Albumin/Globulin Ratio 1.4 (0.9-2) TSH 116.121 H (0.300-4.500) uIu/ml Free T4 0.37 L (0.61-1.60) ng/dl Urine Color Urine Appearance (Clear) Urine pH (4.5-7.5) Ur Specific [place] (1.000-1.030) Urine Protein (Negative) Urine Glucose (UA) (Negative) Urine Ketones (Negative) Urine Blood (Negative) Urine Nitrite (Negative) Urine Bilirubin (Negative) Urine Urobilinogen (Negative) Ur Leukocyte Esterase (Negative) Urine WBC (Auto) (0-5) /hpf Urine RBC (Auto) (0-4) /hpf U Hyaline Cast (Auto) (0-5) /lpf U Epithel Cells (Auto) (0-5) /lpf Urine Bacteria (Auto) (Negative) Adenovirus (PCR) Not Detected (NotDetected) B. pertussis DNA (PCR) Not Detected (NotDetected) B.parapertussis DNA PCR Not Detected (NotDetected) C. pneumoniae DNA (PCR) Not Detected (NotDetected) Coronavirus OC43 (PCR) Not Detected (NotDetected) Coronavirus HKU1 (PCR) Not Detected (NotDetected) Coronavirus 229E (PCR) Not Detected (NotDetected) SARS-CoV-2 (PCR) Not Detected (NotDetected) Coronavirus NL63 (PCR) Not Detected (NotDetected) Human Metapneumovir PCR Not Detected (NotDetected) Influenza Type A (PCR) Not Detected (NotDetected) Influenza Type B (PCR) Not Detected (NotDetected) M. pneumoniae (PCR) Not Detected (NotDetected) Parainfluenza 1 (PCR) Not Detected (NotDetected) Parainfluenza 2 (PCR) Not Detected (NotDetected) Parainfluenza 3 (PCR) Not Detected (NotDetected) Parainfluenza 4 (PCR) Not Detected (NotDetected) RSV (PCR) Not Detected (NotDetected) Entero/Rhino (PCR) Not Detected (NotDetected) 01/15/23 Range/Units 12:20 WBC (4.8-10.8) K/ul RBC (4.20-5.40) M/uL Hgb (12.0-16.0) g/dl Hct (37.0-47.0) % MCV (80.0-100.0) fL MCH (25.0-34.0) pg MCHC (32.0-36.0) g/dL RDW Std Deviation (36.4-46.3) fL RDW Coeff of Dalia (11.5-14.5) % Plt Count (130-400) K/uL MPV (9.4-12.4) fL Immature Gran % (Auto) % Neut % (Auto) % Lymph % (Auto) % [place] % (Auto) % Eos % (Auto) % Baso % (Auto) % Neut # (Auto) (1.40-6.50) K/uL Lymph # (Auto) (1.20-3.40) K/uL [place] # (Auto) (0.11-0.59) K/uL Eos # (Auto) (0.00-0.50) K/uL Baso # (Auto) (0.00-0.20) K/uL Immature Gran # (Auto) (0.01-0.20) K/uL Sodium (136-145) mmol/L Potassium (3.5-5.1) mmol/L Chloride (98-107) mmol/L Carbon Dioxide (21-32) mmol/L Anion Gap (3-11) BUN (6-23) mg/dl Creatinine (0.6-1.2) mg/dl Est Cr Clr Drug Dosing ml/min Est GFR ( Amer) ml/min Est GFR (Non-Af Amer) ml/min BUN/Creatinine Ratio (10-20) Glucose (70-99(Fasting)) mg/dl Calcium (8.6-10.3) mg/dl Magnesium (1.7-2.4) mg/dl Total Bilirubin (0.2-1.0) mg/dl AST (13-39) U/L ALT (7-52) U/L Alkaline Phosphatase (34-104) U/L Troponin I High Sens (0-14) pg/ml Total Protein (6.0-8.3) gm/dl Albumin (3.4-5.0) gm/dl Globulin (2.5-4.0) gm/dl Albumin/Globulin Ratio (0.9-2) TSH (0.300-4.500) uIu/ml Free T4 (0.61-1.60) ng/dl Urine Color Yellow Urine Appearance Clear (Clear) Urine pH 7.5 (4.5-7.5) Ur Specific [place] 1.008 (1.000-1.030) Urine Protein 3+ H (Negative) Urine Glucose (UA) Negative (Negative) Urine Ketones Trace H (Negative) Urine Blood Trace H (Negative) Urine Nitrite Negative (Negative) Urine Bilirubin Negative (Negative) Urine Urobilinogen Negative (Negative) Ur Leukocyte Esterase Negative (Negative) Urine WBC (Auto) 1-5 (0-5) /hpf Urine RBC (Auto) 0-4 (0-4) /hpf U Hyaline Cast (Auto) 1-5 (0-5) /lpf U Epithel Cells (Auto) 10-20 H (0-5) /lpf Urine Bacteria (Auto) Negative (Negative) Adenovirus (PCR) (NotDetected) B. pertussis DNA (PCR) (NotDetected) B.parapertussis DNA PCR (NotDetected) C. pneumoniae DNA (PCR) (NotDetected) Coronavirus OC43 (PCR) (NotDetected) Coronavirus HKU1 (PCR) (NotDetected) Coronavirus 229E (PCR) (NotDetected) SARS-CoV-2 (PCR) (NotDetected) Coronavirus NL63 (PCR) (NotDetected) Human Metapneumovir PCR (NotDetected) Influenza Type A (PCR) (NotDetected) Influenza Type B (PCR) (NotDetected) M. pneumoniae (PCR) (NotDetected) Parainfluenza 1 (PCR) (NotDetected) Parainfluenza 2 (PCR) (NotDetected) Parainfluenza 3 (PCR) (NotDetected) Parainfluenza 4 (PCR) (NotDetected) RSV (PCR) (NotDetected) Entero/Rhino (PCR) (NotDetected) Administered Medications Discontinued Medications Sodium Chloride (Nss) 500 mls @ 999 mls/hr IV .Q31M [facility] Stop: 01/15/23 11:45 Last Infusion: 01/15/23 11:52 Dose: 0 mls/hr Documented By: Admin: 01/15/23 11:21 Dose: 999 mls/hr Documented By: KOTA Potassium Chloride (K Luis Eduardo / Wtr) 10 meq in 100 mls @ 100 mls/hr IV ONE ONE; Protocol Stop: 01/15/23 13:31 Last Admin: 01/15/23 12:59 Dose: 100 mls/hr Documented By: KOTA Acetaminophen (Ofirmev) 1,000 mg in 100 mls @ 400 mls/hr IV NOW STA Stop: 01/15/23 13:29 Last Admin: 01/15/23 13:22 Dose: 400 mls/hr Documented By: STAN Labetalol HCl (Labetalol Hcl Iv 5 Mg/Ml 20ml) 10 mg IV NOW STA Stop: 01/15/23 11:55 Last Admin: 01/15/23 12:01 Dose: 10 mg Documented By: STAN Co-signed By: PRICE Labetalol HCl (Labetalol Hcl Iv 5 Mg/Ml 20ml) 5 mg IV NOW STA Stop: 01/15/23 13:16 Last Admin: 01/15/23 13:21 Dose: 5 mg Documented By: STAN Co-signed By: KOTA Ondansetron HCl (Ondansetron Inj 2 Mg/Ml 2 Ml Vial) 4 mg IV NOW STA Stop: 01/15/23 11:05 Last Admin: 01/15/23 11:25 Dose: 4 mg Documented By: KOTA Ondansetron HCl (Ondansetron Inj 2 Mg/Ml 2 Ml Vial) 4 mg IV NOW STA Stop: 01/15/23 13:46 Last Admin: 01/15/23 14:04 Dose: 4 mg Documented By: KOTA Imaging Data Radiologist's Impression: Chest X-Ray 01/15/23 11:05 SINGLE VIEW CHEST CLINICAL HISTORY: Generalized weakness. FINDINGS: An AP, portable, upright chest radiograph is compared to study dated 12/30/2017. The heart is enlarged noting atherosclerotic calcification of the thoracic aorta. The pulmonary vasculature is congested. Chronic residual thickening is similar to previous. The lungs and pleural spaces are clear. No pneumothorax is seen. The skeletal structures are osteopenic. The bony thorax is grossly intact. IMPRESSION: Cardiomegaly with no active disease in the chest. ACT 112: Negative or not required by law. Electronically signed by: Raul Suresh M.D. 01/15/2023 12:[address] 01/15/23 12:30 CT head/brain wo con CLINICAL HISTORY: 77 years-old Female with headache, severe htn. Acute headache with hypertension TECHNIQUE: Multiple axial CT images of the head were obtained without contrast. A dose lowering technique was utilized adhering to the principles of ALARA. CT DOSE: 1891.07 mGy.cm COMPARISON: 02/21/2021 FINDINGS: No acute intracranial hemorrhage, midline shift, intracranial mass, hydrocephalus, territorial ischemia or abnormal extra-axial collection. Involutional changes with chronic microvascular ischemic disease. Cerebrovascular calcifications. The calvarium is intact. The paranasal sinuses, mastoid air cells, and middle ear cavities are clear. IMPRESSION: No acute intracranial abnormality. ACT 112: Negative or not required by law. The above report was generated using voice recognition software. It may contain grammatical, syntax or spelling errors. Electronically signed by: Lorenzo Conrad M.D. 01/15/2023 1:10 PM Abdomen/Pelvis CT 01/15/23 12:37 CT abd pelvis wo con CLINICAL HISTORY: nausea, vomiting. hx of CKD TECHNIQUE: Helical axial images of the abdomen and pelvis were obtained. Automated dose lowering techniques and/or adjustment according to patient size were utilized for this exam. This exam was performed without intravenous contrast. COMPARISON: Comparison is made to CT chest 11/19/2017 FINDINGS: Lower chest: Partial visualization of right breast implant. Liver: Unremarkable. No focal lesions are seen. Gallbladder and biliary tree: Cholelithiasis is seen without evidence of cholecystitis. No intra- or extrahepatic biliary ductal dilation. Pancreas: Fatty replacement of the pancreas is seen. Spleen: Calcifications are noted in the spleen compatible with prior granulomatous disease. Adrenals: Unremarkable. Kidneys and ureters: Renal cysts are seen. Bladder: Limited evaluation due to underdistention. Reproductive organs: Unremarkable. Bowel: Under distended large and small bowel without acute abnormalities. Lymph nodes Retroperitoneal: Multiple mesenteric lymph nodes measure up to 11 mm in diameter, this is unchanged from prior exam. Pelvic: Subcentimeter lymph nodes are noted. Inguinal lymph nodes measure up to 13 mm. Mesenteric: Unremarkable. Peritoneum: Normal. Vessels: Atherosclerotic calcifications are seen. Abdominal wall: Unremarkable. Bones: Acute to subacute appearing fracture of the superior endplate of L5 is again noted. There is a minimally displaced compression deformity of L4 as well. Degenerative changes are seen in the spine. Right femoral nail noted. IMPRESSION: 1. No acute abnormalities to explain nausea and vomiting, in particular no evidence of bowel obstruction. 2. Fatty replacement of the pancreas without evidence pancreatitis. 3. Acute to subacute fractures of L4 and L5 again noted. 4. Multiple prominent lymph nodes are unchanged from prior exam. ACT 112: Negative or not required by law. Electronically signed by: Jevon Cruz M.D. 01/15/2023 1:24 PM Discharge Plan Visit Data Chief Complaint: Dehydration Stated Complaint: DEHYDRATION, NAUSEA, VOMITING ED Provider: Kunal Dubon Discharge Problem: Severe hypertension, Nausea & vomiting, Elevated troponin, Headache Forms Stand Alone Forms: My [facility] Prescriptions Prescriptions: No Action omeprazole 20 mg tablet,delayed release (DR/EC) 20 mg PO DAILY Qty: 90 3RF simvastatin 10 mg tablet 10 mg PO QPM Qty: 90 3RF losartan 50 mg tablet 50 mg PO QAM Qty: 90 3RF levothyroxine 112 mcg tablet 112 mcg PO DAILY Qty: 90 3RF metoprolol succinate 25 mg tablet extended release 24 hr 25 mg PO BID Qty: 180 3RF alprazolam [Xanax] 0.5 mg tablet 0.5 mg PO .COMPLEX Qty: 2 0RF Rx Instructions: 1 pill 1 hour before MRI study, the second pill just before the study. metformin 500 mg tablet extended release 24 hr 500 mg PO BID Rx Instructions: Regular ER, not MOD or OSM aspirin [Aspir-81] 81 mg Tablet,Delayed Release (Dr/Ec) 81 mg PO HS letrozole 2.5 mg Tablet 2.5 mg PO QPM cholecalciferol (vitamin D3) [Vitamin D3] 1,000 unit Capsule 1,000 unit PO QAM Fiber Gummies 2 gram Tablet,Chewable 2 g PO QAM clobetasol 0.05 % Lotion 1 applic TOPICAL BID PRN (Reason: Rash) biotin 1 mg Capsule 1 mg PO QAM acetaminophen [Tylenol Extra Strength] 500 mg Tablet 1,000 mg PO HS PRN (Reason: Restless Leg(S)) Multivitamin Gummies 2 ea PO DAILY torsemide 20 mg tablet 20 mg PO DAILY Rx Instructions: TAKE 1 TABLET DAILY citalopram 20 mg tablet 20 mg PO BID allopurinol 300 mg tablet 300 mg PO PM Rx Instructions: TAKE 1 TABLET EVERY EVENING Referrals Referrals: Mitzi Marquez MD [Primary Care Provider] -
[2023-01-15 12:38] LABS: Appearance Urine Clear (Clear); Bacteria Urine Automated Negative (Negative); Bilirubin Urine Negative (Negative); Blood Urine Trace (Negative); Color Urine Yellow; Glucose Urine UA Negative (Negative); Ketones Urine Trace (Negative); Leukocyte Esterase Urine Negative (Negative); Nitrite Urine Negative (Negative); RBC Urine Automated 0-4 /hpf (0-4); Specific Gravity Urine 1.008 (1.000-1.030); Urobilinogen Urine Negative (Negative); pH Urine 7.5 (4.5-7.5)
--- NOTE | 2023-01-15 12:39 | Electrocardiogram Report ---
Test Reason : Blood Pressure : / mmHG Vent. Rate : 083 BPM Atrial Rate : 083 BPM P-R Int : 152 ms QRS Dur : 142 ms QT Int : 422 ms P-R-T Axes : 051 -48 073 degrees QTc Int : 495 ms Normal sinus rhythm Left axis deviation Left bundle branch block Abnormal ECG When compared with ECG of 05-JAN-2018 06:41, No significant change was found Confirmed by Jaden Gomez ([id number]) on 01/15/2023 12:39:16 PM Referred By: REFERRED SELF Confirmed By:Estrada Gomez
[2023-01-15 12:42] LABS: Protein Urine 3+ (Negative)
[2023-01-15 12:48] LABS: Adenovirus PCR Not Detected (NotDetected); Bordetella parapertussis PCR Not Detected (NotDetected); Bordetella pertussis PCR Not Detected (NotDetected); Chlamydia pneumoniae PCR Not Detected (NotDetected); Coronavirus 229E PCR Not Detected (NotDetected); Coronavirus CoV-2 (COVID19)PCR Not Detected (NotDetected); Coronavirus HKU1 PCR Not Detected (NotDetected); Coronavirus NL63 PCR Not Detected (NotDetected); Coronavirus OC43PCR Not Detected (NotDetected); Human Metapneumovirus PCR Not Detected (NotDetected); Influenza A PCR Not Detected (NotDetected); Influenza B PCR Not Detected (NotDetected); Mycoplasma pneumoniae PCR Not Detected (NotDetected); Parainfluenza Virus 1 PCR Not Detected (NotDetected); Parainfluenza Virus 2 PCR Not Detected (NotDetected); Parainfluenza Virus 3 PCR Not Detected (NotDetected); Parainfluenza Virus 4 PCR Not Detected (NotDetected); Respiratory Syncytial VirusPCR Not Detected (NotDetected); Rhinovirus/Enterovirus PCR Not Detected (NotDetected)
--- NOTE | 2023-01-15 13:11 | CT Scan Report ---
CT head/brain wo con CLINICAL HISTORY: 77 years-old Female with headache, severe htn. Acute headache with hypertension TECHNIQUE: Multiple axial CT images of the head were obtained without contrast. A dose lowering tech nique was utilized adhering to the principles of ALARA. CT DOSE: 1891.07 mGy.cm COMPARISON: 02/21/2021 FINDINGS: No acute intracranial hemorrhage, midline shift, intracranial mass, hydrocephalus, territorial ischem ia or abnormal extra-axial collection. Involutional changes with chronic microvascular ischemic disea se. Cerebrovascular calcifications. The calvarium is intact. The paranasal sinuses, mastoid air cells, and middle ear cavities are clear . IMPRESSION: No acute intracranial abnormality. ACT 112: Negative or not required by law. The above report was generated using voice recognition software. It may contain grammatical, syntax o r spelling errors. Electronically signed by: Lorenzo Conrad M.D. 01/15/2023 1:10 PM
[2023-01-15] MEDS ORDERED: ACETAMINOPHEN 1,000 MG/100 ML VIAL IV STA (13:15)
--- NOTE | 2023-01-15 13:26 | CT Scan Report ---
CT abd pelvis wo con CLINICAL HISTORY: nausea, vomiting. hx of CKD TECHNIQUE: Helical axial images of the abdomen and pelvis were obtained. Automated dose lowering tech niques and/or adjustment according to patient size were utilized for this exam. This exam was perfor med without intravenous contrast. COMPARISON: Comparison is made to CT chest 11/19/2017 FINDINGS: Lower chest: Partial visualization of right breast implant. Liver: Unremarkable. No focal lesions are seen. Gallbladder and biliary tree: Cholelithiasis is seen without evidence of cholecystitis. No intra- or extrahepatic biliary ductal dilation. Pancreas: Fatty replacement of the pancreas is seen. Spleen: Calcifications are noted in the spleen compatible with prior granulomatous disease. Adrenals: Unremarkable. Kidneys and ureters: Renal cysts are seen. Bladder: Limited evaluation due to underdistention. Reproductive organs: Unremarkable. Bowel: Under distended large and small bowel without acute abnormalities. Lymph nodes Retroperitoneal: Multiple mesenteric lymph nodes measure up to 11 mm in diameter, this is unchanged f rom prior exam. Pelvic: Subcentimeter lymph nodes are noted. Inguinal lymph nodes measure up to 13 mm. Mesenteric: Unremarkable. Peritoneum: Normal. Vessels: Atherosclerotic calcifications are seen. Abdominal wall: Unremarkable. Bones: Acute to subacute appearing fracture of the superior endplate of L5 is again noted. There is a minimally displaced compression deformity of L4 as well. Degenerative changes are seen in the spine. Right femoral nail noted. IMPRESSION: 1. No acute abnormalities to explain nausea and vomiting, in particular no evidence of bowel obstruc tion. 2. Fatty replacement of the pancreas without evidence pancreatitis. 3. Acute to subacute fractures of L4 and L5 again noted. 4. Multiple prominent lymph nodes are unchanged from prior exam. ACT 112: Negative or not required by law. Electronically signed by: Jevon Cruz M.D. 01/15/2023 1:24 PM
[2023-01-15 14:06] LABS: T4 Free Thyroxine 0.37 ng/dl (0.61-1.60)
--- NOTE | 2023-01-15 14:17 | History & Physical Report ---
Date of Service January 15, 2023 Assessment & Plan (1) Nausea & vomiting: Plan: Intermittent nausea since October per pt, but recently worsened x 2 days; vomiting with food/fluid intake and dry heaving Suspected gastritis secondary to recent NSAID use - 1-2 ibuprofen tabs every 6 hours over the past week for her chronic lumbosacral pain, improvement with tums/famotidine support this diagnosis Start Pantoprazole 40 mg IV daily and famotidine 20 mg IV BID Ondansetron 4mg IV q4h PRN for nausea, monitor QTc with daily EKG Troponin stable - do not suspect ACS Trial clears; advance to diet as tolerated If not improving consider GI consult, recommend outpatient follow up with GI irregardless since this has occurred despite regular omeprazole use (2) Nephrotic range proteinuria: Plan: Suspect secondary to uncontrolled HTN however this is a ramatic sudden increase since even September 2022 (although direct comparson not available microalbumin/Cr ratio at that time was only x3 upper limit of normal) Consult nephrology (3) Hypothyroid: Plan: Elevated TSH 116 on arrival. no hypothermia/hyponatremia/hypotension/AMS Per patient, has not been taking levothyroxine the last 5 days due to vomiting Continue usual levothyroxine (4) Hypertension: Plan: BP 216/133 on arrival IV labetalol given in the ED Patient not taking PO meds due to nausea and vomiting, will given PO meds with apple sauce as able - metoprolol succinate, torsemide, losartan IV hydralazine 5mg q4h PRN for sBP > 180 while PO medications re-introduced (5) Lumbosacral pain: Plan: Chronic; secondary to mild superior endplate compression fracture at L5 Ambulatory assist device (cane) Today, b/l hamstring pain exacerbated with movement; okay at rest Degenerative spondylolisthesis Continue acetaminophen for pain Per patient, tramadol may have exacerbated her nausea; avoid for now (6) Hypokalemia: Plan: K 3.1 on arrival, likely secondary to vomiting Continue potassium supplementation in IV fluids; target K>4 Mag okay at 1.8 (7) History of breast cancer: Plan: Original Dx in 2012; radical mastectomy with reconstruction on 03/01/2013 On letrozole 2.5 mg p.o. (8) Diabetes: Plan: Last A1c was 7.2 on 10/02/2022, repeat with AM labs Hold metformin during inaptient admission Start Lantus 0-5 units BID depending on glucose <120> Novolog: --Goal BSG Range: Low 110 mg/dL, High 140 mg/dL --Correction Factor: 45 mg/dL/unit --Carbohydrate ratio = 15 g/unit --BSGs ACHS if eating, q6h if npo Plan VTE Prophylaxis - heparin 5000 units SQ q8h Diet - clears, T2DM Disposition- Observation on med telemetry Admission and Anticipated Discharge Date Admission Date: January 15, 2023 History of Present Illness Chief Complaint: Nausea, vomiting Primary Care Provider: Mitzi Marquez MD Abi Montemayor is a 77-year-old female with PMH of breast cancer, HLD, depression, hypothyroidism, vitamin D deficiency, lumbosacral pain, right leg sciatica, CARINA, T2DM, CKD stage III, and HTN. She presents with nausea, vomiting, and dehydration much worse the last 2 days; however, endorses ongoing, intermittent nausea since October which recently worsened. Per patient, N/V/D worsened after being prescribed pain medicine (tramadol 50 mg 3 times daily; tizanidine 4 mg every 12 hours) by Dr. Adam for her chronic lumbosacral pain. Took medication 1 week as prescribed, then stopped, which improved her symptoms. Famotidine and Tums also helped. Symptoms progressed 2 days ago and she has "not been able to keep anything down" since. No sick contacts. No leukocytosis. No fever. She endorses prior dysphagia and was due to have an EGD previously but anesiology declined since she has a left bundle branch block. BP markedly elevated at 216/133 on arrival; patient can't keep BP meds down due to vomiting. Patient endorses headache (intermittent, chronic), dizziness, and b/l hamstring pain secondary to lumbosacral pain. Patient denies recent fever, chills, night sweats, hematemesis, CP, SOB, abdominal pain, saddle anesthesia, blood in urine or stool, urinary symptoms, or swelling in the legs. Allergies Allergy/AdvReac Type Severity Reaction Status Date / Time diltiazem Allergy Mild RASH Verified 12/11/22 09:05 fluoxetine Allergy Mild RASH Verified 12/11/22 09:05 valsartan Allergy Mild SHORTNESS Verified 12/11/22 09:05 OF BREATH adhesive Allergy Unknown RASH WITH Verified 12/11/22 09:05 BANDAIDS cat dander Allergy Unknown Unknown Verified 12/11/22 09:05 ragweed pollen Allergy Unknown NASAL Verified 12/11/22 09:05 IRRITATION,STUFFINESS tree and shrub pollen Allergy Unknown BIRCH Verified 12/11/22 09:05 TREES-CONGESTION ramipril Allergy Cough Verified 12/11/22 09:05 onion AdvReac Unknown RAW-GI Verified 12/11/22 09:05 UPSET Home Medications Medication Instructions Recorded Confirmed Type aspirin 81 mg tablet,delayed 81 mg PO HS 12/30/17 01/15/23 History release (Aspir-) cholecalciferol (vitamin D3) 25 1,000 unit PO QAM 12/30/17 01/15/23 History mcg (1,000 unit) capsule (Vitamin D3) letrozole 2.5 mg tablet 2.5 mg PO QPM 12/30/17 01/15/23 History acetaminophen 500 mg tablet 1,000 mg PO HS PRN Restless Leg(S) 10/07/18 01/15/23 History (Tylenol Extra Strength) biotin 1 mg capsule 1 mg PO QAM 10/07/18 01/15/23 History clobetasol 0.05 % lotion 1 applic topical BID PRN Rash 10/07/18 01/15/23 History inulin 2 gram chewable tablet 2 g PO QAM 10/07/18 01/15/23 History (Fiber Gummies) omeprazole 20 mg tablet,delayed 20 mg PO DAILY #90 tabs 01/15/22 01/15/23 Rx release simvastatin 10 mg tablet 10 mg PO QPM #90 tabs 07/09/22 01/15/23 Rx losartan 50 mg tablet 50 mg PO QAM #90 tabs 07/31/22 01/15/23 Rx levothyroxine 112 mcg tablet 112 mcg PO DAILY #90 tabs 10/03/22 01/15/23 Rx metoprolol succinate 25 mg 25 mg PO BID #180 tabs 10/03/22 01/15/23 Rx tablet,extended release 24 hr alprazolam 0.5 mg tablet (Xanax) 0.5 mg PO .COMPLEX #2 tabs 12/11/22 01/15/23 Rx metformin 500 mg tablet,extended 500 mg PO BID 12/11/22 01/15/23 History release 24 hr Multivitamin Gummies 2 ea PO DAILY 01/15/23 01/15/23 History allopurinol 300 mg tablet 300 mg PO PM 01/15/23 01/15/23 History citalopram 20 mg tablet 20 mg PO BID 01/15/23 01/15/23 History torsemide 20 mg tablet 20 mg PO DAILY 01/15/23 01/15/23 History Past Med/Surg History Medical History Aneurysm, cerebral Anxiety Arrhythmia (02/17/13) Basilar artery aneurysm Borderline diabetes Bundle branch block, left Chronic foot pain CKD (chronic kidney disease), stage III Constipation Depression Diabetes DVT prophylaxis Edema GERD (gastroesophageal reflux disease) Gout History of breast cancer History of colon polyps Hyperparathyroidism Hypertension Hypothyroidism Lichen sclerosus et atrophicus Lower extremity edema Microalbuminuria due to type 2 diabetes mellitus Mood disorder Normochromic normocytic anemia Obesity (BMI 30-39.9) Obstructive sleep apnea Osteoarthritis Peripheral neuropathy Posttraumatic wound infection Ptosis, left Rectal carcinoid tumor Restless legs syndrome Skin lesion of breast SOB (shortness of breath) on exertion Stomach ulcer Traumatic hematoma of lower leg with infection Traumatic open wound of right lower leg with delayed healing Tremor Urinary incontinence Venous insufficiency of both lower extremities Vitamin D deficiency Vomiting Surgical History H/O cataract removal with insertion of prosthetic lens History of arthroscopy History of breast reconstruction History of colonoscopy History of left knee replacement (~2013) History of open reduction and internal fixation (ORIF) procedure History of open reduction and internal fixation (ORIF) procedure History of right knee joint replacement (~2006) Hx of total hip arthroplasty S/P appendectomy (~1959) S/P hysterectomy (~1995) S/P mastectomy (03/01/13) Family History Father Aneurysm of thoracic aorta Hypertension Prostate cancer Mother Hyperlipidemia Hypertension Unknown Hyperthyroidism Hypertension Uncle Family history of diabetes mellitus Myocardial infarction Diabetes Stroke Aunt Breast cancer Sister Breast cancer Hyperthyroidism Detached retina Other Family history non-contributory Denies family history of Ovarian cancer Lung cancer Colorectal cancer Social History (Reviewed 08/30/23 @ 09:10 by LOUISA Gates Smoking Status: Former smoker Tobacco Type: Cigars Second Hand Exposure: No; Do You Dip or Chew Tobacco: No; Hx Alcohol Use: No Hx Substance Use: No Preferred Language: German Communication Ability: Effective Visual Impairment: Limited Hearing Ability: Normal Vp Platforms Required: No Beliefs That Will Affect Care: None marital status: Current Living Situation: Spouse Current Living Situation Comment: At home current occupational status: employed current occupation: [employer] in [place] How many Children do You have: 2 Feels Safe at Home: Yes Safety Concerns: Feels Safe At This Time Childhood Exposure to Second-Hand Smoke: Yes caffeine: Yes Dental Care, Regularly: No Physical Activity Frequency: Does not Exercise Seatbelt Use: always Sunscreen Use: Yes Assistive Devices: None and Walker Review of Systems Review of Systems: All systems reviewed & are unremarkable except as noted in HPI & below Physical Exam Constitutional: WD/WN, vitals as above Eyes: PERRL, conjunctivae normal, anicteric sclerae ENMT: external ear and nose normal, oropharynx normal Respiratory: normal respiratory effort, lungs clear to auscultation Cardiovascular: RRR, no murmur, no edema Gastrointestinal (Abdomen): normal bowel sounds, soft, nontender, no hepatosplenomegaly Musculoskeletal: no cyanosis or clubbing, extremities motor strength 5/5 Skin: no rashes, warm and dry Neurologic: moves all extremities and awake; no focal motor deficits and not confused Psychiatric: A+Ox3, euthymic affect Genitourinary: no CVA tenderness Results & Data Results & Data Vital Signs (Past 12 Hours) Vital Signs Temp Pulse Pulse Resp BP BP Pulse Ox 01/15/23 13:12 78 01/15/23 12:48 72 18 188/99 H 95 01/15/23 12:30 74 12 185/107 H 97 01/15/23 12:34 76 185/107 H 01/15/23 12:23 198/130 H 01/15/23 12:05 85 14 192/125 H 91 01/15/23 12:00 81 14 205/116 H 92 01/15/23 13:21 76 202/110 H 01/15/23 12:01 78 205/116 H 01/15/23 11:30 80 16 220/127 H 96 01/15/23 11:05 81 18 95 10/04/23 10:53 36.6 C 96 H 20 216/133 H 95 O2 Del Method 01/15/23 13:12 01/15/23 12:48 Room Air 01/15/23 12:30 Room Air 01/15/23 12:34 01/15/23 12:23 Room Air 01/15/23 12:05 Room Air 01/15/23 12:00 Room Air 01/15/23 13:21 01/15/23 12:01 01/15/23 11:30 Room Air 01/15/23 11:05 Room Air 01/15/23 10:53 Room Air Laboratory Results Abnormal lab results 01/15/23 01/15/23 Range/Units 11:13 12:20 Potassium 3.1 L (3.5-5.1) mmol/L BUN/Creatinine Ratio 8.7 L (10-20) Glucose 152 H (70-99(Fasting)) mg/dl Calcium 10.7 H (8.6-10.3) mg/dl Alkaline Phosphatase 176 H (34-104) U/L Troponin I High Sens 30.4 H (0-14) pg/ml TSH 116.121 H (0.300-4.500) uIu/ml Free T4 0.37 L (0.61-1.60) ng/dl Urine Protein 3+ H (Negative) Urine Ketones Trace H (Negative) Urine Blood Trace H (Negative) U Epithel Cells (Auto) 10-20 H (0-5) /lpf Diagnostic Findings CT head/brain wo con CLINICAL HISTORY: 77 years-old Female with headache, severe htn. Acute headache with hypertension TECHNIQUE: Multiple axial CT images of the head were obtained without contrast. A dose lowering technique was utilized adhering to the principles of ALARA. CT DOSE: 1891.07 mGy.cm COMPARISON: 02/21/2021 FINDINGS: No acute intracranial hemorrhage, midline shift, intracranial mass, hydrocephalus, territorial ischemia or abnormal extra-axial collection. Involutional changes with chronic microvascular ischemic disease. Cerebrovascular calcifications. The calvarium is intact. The paranasal sinuses, mastoid air cells, and middle ear cavities are clear. IMPRESSION: No acute intracranial abnormality. SINGLE VIEW CHEST CLINICAL HISTORY: Generalized weakness. FINDINGS: An AP, portable, upright chest radiograph is compared to study dated 12/30/2017. The heart is enlarged noting atherosclerotic calcification of the thoracic aorta. The pulmonary vasculature is congested. Chronic residual thickening is similar to previous. The lungs and pleural spaces are clear. No pneumothorax is seen. The skeletal structures are osteopenic. The bony thorax is grossly intact. IMPRESSION: Cardiomegaly with no active disease in the chest. CT abd pelvis wo con CLINICAL HISTORY: nausea, vomiting. hx of CKD TECHNIQUE: Helical axial images of the abdomen and pelvis were obtained. Automated dose lowering techniques and/or adjustment according to patient size were utilized for this exam. This exam was performed without intravenous contrast. COMPARISON: Comparison is made to CT chest 11/19/2017 FINDINGS: Lower chest: Partial visualization of right breast implant. Liver: Unremarkable. No focal lesions are seen. Gallbladder and biliary tree: Cholelithiasis is seen without evidence of cholecystitis. No intra- or extrahepatic biliary ductal dilation. Pancreas: Fatty replacement of the pancreas is seen. Spleen: Calcifications are noted in the spleen compatible with prior granulomatous disease. Adrenals: Unremarkable. Kidneys and ureters: Renal cysts are seen. Bladder: Limited evaluation due to underdistention. Reproductive organs: Unremarkable. Bowel: Under distended large and small bowel without acute abnormalities. Lymph nodes Retroperitoneal: Multiple mesenteric lymph nodes measure up to 11 mm in diameter, this is unchanged from prior exam. Pelvic: Subcentimeter lymph nodes are noted. Inguinal lymph nodes measure up to 13 mm. Mesenteric: Unremarkable. Peritoneum: Normal. Vessels: Atherosclerotic calcifications are seen. Abdominal wall: Unremarkable. Bones: Acute to subacute appearing fracture of the superior endplate of L5 is again noted. There is a minimally displaced compression deformity of L4 as well. Degenerative changes are seen in the spine. Right femoral nail noted. IMPRESSION: 1. No acute abnormalities to explain nausea and vomiting, in particular no evidence of bowel obstruction. 2. Fatty replacement of the pancreas without evidence pancreatitis. 3. Acute to subacute fractures of L4 and L5 again noted. 4. Multiple prominent lymph nodes are unchanged from prior exam. Medications Administered ER Medications Given: Normal saline 500ml bolus Ondasetron 4mg IV Labetalol 10mg IV Potassium chloride 10 meq IV Labetalol 5mg IV Acetaminophen 1000mg IV Ondansetron 4mg IV ECG Rate (beats per minute): 83 Rhythm: normal sinus Findings: + LBBB (not new); no acute ischemic change Comparison ECG Date: from (January 05, 2018) Change: no significant change Code Status & VTE Plan Code Status Full VTE Prophylaxis Plan VTE Prophylaxis will be ordered: Yes PG Care Time/CCT Total # of Minutes Spent Total Time Spent with Patient: Total time spent is greater than 50% in coordination of care (as documented) at patient's floor/unit and/or counseling patient: Coding Level of Care Code 10611 INT INP/OBS CARE 2/55MIN Diagnoses Nausea & vomiting R11.2 Nephrotic range proteinuria R80.9 Hypothyroid E03.9 Hypertension I10 Hypertension type: essential hypertension Lumbosacral pain M54.50 Hypokalemia E87.6 History of breast cancer Z85.3 Diabetes E11.8 Diabetes mellitus complication status: with unspecified complications Diabetes mellitus terminal makeup operator insulin use: without terminal makeup operator use Diabetes mellitus type: type 2 (4) Hypertension Hypertension type: essential hypertension Qualified Code(s): I10 - Essential (primary) hypertension (8) Diabetes Diabetes mellitus complication status: with unspecified complications Diabetes mellitus mcc insulin use: without terminal makeup operator use Diabetes mellitus type: type 2 Qualified Code(s): E11.8 - Type 2 diabetes mellitus with unspecified complications
[2023-01-15 15:02] LABS: Troponin I High Sensitivity 33.8 pg/ml (0-14)
[2023-01-15] MEDS ORDERED: PANTOprazole 40 MG in SYRINGE 0 ML IV STA (15:29)
[2023-01-15] MEDS ORDERED: FAMOTIDINE 20 MG in SYRINGE 3 ML IV STA (15:39)
[2023-01-15] MEDS ORDERED: FAMOTIDINE 20MG IV PUSH 20 MG/5 ML SYR IV STA (15:43)
[2023-01-15 17:55] LABS: Total Protein Urine Random 194.7 mg/dl (0-11.9)
[2023-01-15 18:00] LABS: Creatinine Urine Random 35.9 mg/dl; Protein Creatinine Ratio Urine 5.4 (0-0.2)
[2023-01-15] MEDS ORDERED: hydrALAZINE HCL 20 MG/ML VIAL IV PRN (18:24)
[2023-01-15] MEDS ORDERED: INFLUENZA VACCINE HIGH-DOSE (HD-IIV4) PF 65+ 0.7mL SYR IM ONE (18:40)
[2023-01-15] MEDS: SODIUM CHLOR 0.45% + 20MEQ KCL 20 MEQ/1,000 ML BAG IV SCH (19:57)
[2023-01-15] MEDS: ACETAMINOPHEN 325 MG TAB PO PRN (21:11)
[2023-01-15] MEDS: CITALOPRAM 20 MG TAB PO SCH (21:52)
[2023-01-15] MEDS: LETROZOLE 2.5 MG TAB PO SCH (21:53)
[2023-01-15] MEDS: METOPROLOL SUCC 25MG EXT REL TAB PO SCH (21:53)
[2023-01-15] MEDS: allopurinoL 300 MG TAB PO SCH (21:55)
[2023-01-15] MEDS ORDERED: GLUCOSE 40% GEL 15 GM TUBE PO PRN (23:16)
[2023-01-15] MEDS ORDERED: CARBOHYDRATES FOR HYPOGLYCEMIA PO PRN (23:16)
[2023-01-15] MEDS ORDERED: GLUCOSE 10 TAB/TUBE PO PRN (23:16)
[2023-01-15] MEDS ORDERED: DEXTROSE 50% 50 ML SYRINGE IV PRN (23:16)
[2023-01-15] MEDS ORDERED: GLUCAGON FOR INJ 1 MG VIAL SQ PRN (23:16)
[2023-01-15] MEDS: MELATONIN 3 MG TAB PO PRN (23:25)
[2023-01-16] MEDS: ONDANSETRON INJ 2 MG/ML 2 ML VIAL IV PRN ×2 (04:09→18:24)
[2023-01-16] MEDS: SODIUM CHLOR 0.45% + 20MEQ KCL 20 MEQ/1,000 ML BAG IV SCH ×2 (05:38→15:44)
[2023-01-16] MEDS: HEPARIN SOD 5,000 UNIT/0.5 ML VIAL SQ SCH ×3 (05:38→20:34)
[2023-01-16] MEDS ORDERED: LEVOTHYROXINE SODIUM 112 MCG TABLET PO SCH (06:30)
[2023-01-16 06:58] LABS: Basophils # (auto) 0.09 K/uL (0.00-0.20); Eosinophils # (auto) 0.22 K/uL (0.00-0.50); Hematocrit (blood only) 35.6 % (37.0-47.0); Hemoglobin 12.4 g/dl (12.0-16.0); Immature Granulocytes # (auto) 0.01 K/uL (0.01-0.20); Immature Granulocytes % (auto) 0.2 %; Lymphocytes # (auto) 1.25 K/uL (1.20-3.40); Lymphocytes % (auto) 28.3 %; Mean Corpuscular Hemoglobin 30.6 pg (25.0-34.0); Mean Corpuscular Hgb Conc 34.8 g/dL (32.0-36.0); Mean Corpuscular Volume 87.9 fL (80.0-100.0); Mean Platelet Volume 10.8 fL (9.4-12.4); Monocytes # (auto) 0.41 K/uL (0.11-0.59); Monocytes % (auto) 9.3 %; Neutrophils # (auto) 2.43 K/uL (1.40-6.50); Neutrophils % (auto) 55.2 %; Platelet Count 200 K/uL (130-400); RDW Coefficient of Variation 14.3 % (11.5-14.5); RDW Standard Deviation 46.1 fL (36.4-46.3); Red Blood Count 4.05 M/uL (4.20-5.40); White Blood Count 4.41 K/ul (4.8-10.8)
[2023-01-16 07:30] LABS: Estimated Average Glucose 157 mg/dl; Hemoglobin A1C 7.1 % (4.5-5.6)
--- NOTE | 2023-01-16 07:30 | Hospitalist Progress Note ---
Date of Service January 16, 2023 Assessment & Plan (1) Nausea & vomiting: Plan: Intermittent nausea since October per pt, but recently worsened x 2 days; vomiting with food/fluid intake and dry heaving Suspected gastritis secondary to recent NSAID use - 1-2 ibuprofen tabs every 6 hours over the past week for her chronic lumbosacral pain Start Pantoprazole 40 mg IV daily and famotidine 20 mg IV BID consider adding Carafate to this makes Ondansetron 4mg IV q4h PRN for nausea, monitor QTc with daily EKG Trial clears; advance to diet as tolerated seems to be improving at this time no melena (2) Hypertension: Plan: BP 216/133 on arrival IV labetalol given in the ED Patient not taking PO meds due to nausea and vomiting, will given PO meds with apple sauce as able - metoprolol succinate, torsemide, losartan IV hydralazine 5mg q4h PRN for sBP > 180 while PO medications re-introduced curbside 8 nephrology feels some of her proteinuria is from her hypertensive renal disease at this point time control blood pressure and have a 24-hour urine collection. If need be the patient can have follow-up in the office. Cancel consult at this time (3) Lumbosacral pain: Plan: Chronic; secondary to subacute compression fracture L4&L5 patient also with spinal stenosis between L4 and 5 due to herniated disc Ambulatory assist device (cane) Degenerative spondylolisthesis scheduled acetaminophen lidocaine patch and oxycodone consider Miacalcin for lumbar fractures if need be Per patient, tramadol may have exacerbated her nausea; avoid for now (4) Hypokalemia: Plan: K 3.1 on arrival, likely secondary to vomiting Continue potassium supplementation in IV fluids; target K>4 Mag replete but low (5) Hypothyroid: Plan: Elevated TSH 116 on arrival. no hypothermia/hyponatremia/hypotension/AMS Per patient, has not been taking levothyroxine the last 5 days due to vomiting Continue levothyroxine do not think a few days of missing it would have such a drastic change in her numbers will increase to 125 recommend outpatient follow- up (6) History of breast cancer: Plan: Original Dx in 2012; radical mastectomy with reconstruction on 03/01/2013 On letrozole 2.5 mg p.o. (7) Diabetes: Plan: Last A1c was 7.2 on 10/02/2022, repeat with AM labs Hold metformin during inaptient admission Start Lantus 0-5 units BID depending on glucose <120> Novolog: --Goal BSG Range: Low 110 mg/dL, High 140 mg/dL --Correction Factor: 45 mg/dL/unit --Carbohydrate ratio = 15 g/unit --BSGs ACHS if eating, q6h if npo Plan VTE Prophylaxis - heparin 5000 units SQ q8h Diet - clears, T2DM Admission and Anticipated Discharge Date Admission Date: January 15, 2023 Subjective patient's abdominal discomfort is improved she is tolerating some breakfast. She has nonradicular back pain at present. Not yet back at her baseline. Physical Exam Physical Exam: Awake alert and appropriate. Card exam regular lungs are clear abdomen is tender in epigastrium. There is no lower quadrant tenderness. Equal symmetrical strength bilaterally patellar reflex intact bilaterally point tenderness mid lower back Results & Data Results & Data Vital Signs (Past 12 Hours) Vital Signs Temp Pulse Pulse Resp BP Pulse Ox O2 Del Method 01/15/23 22:02 78 01/15/23 22:00 97.9 F 01/15/23 22:04 75 16 179/90 H 97 Room Air Laboratory Results reviewed CBC reviewed chemistry PG Care Time/CCT Total # of Minutes Spent Total Time Spent with Patient: Total time spent is greater than 50% in coordination of care (as documented) at patient's floor/unit and/or counseling patient: Coding Level of Care Code 73453 SUB INP/OBS CARE 3/50MIN Diagnoses Nausea & vomiting R11.2 Hypertension I10 Hypertension type: essential hypertension Lumbosacral pain M54.50 Hypokalemia E87.6 Hypothyroid E03.9 History of breast cancer Z85.3 Diabetes E11.8 Diabetes mellitus complication status: with unspecified complications Diabetes mellitus detention insulin use: without detention use Diabetes mellitus type: type 2 (2) Hypertension Hypertension type: essential hypertension Qualified Code(s): I10 - Essential (primary) hypertension (7) Diabetes Diabetes mellitus complication status: with unspecified complications Diabetes mellitus server programmer insulin use: without server programmer use Diabetes mellitus type: type 2 Qualified Code(s): E11.8 - Type 2 diabetes mellitus with unspecified complications
[2023-01-16 07:42] LABS: BUN Creatinine Ratio 9.1 (10-20); Calcium 9.2 mg/dl (8.6-10.3); Creatinine Clr Calc Pharmacy 54.7 ml/min; Est GFR (Non-African American) 63.8 ml/min; Potassium 3.4 mmol/L (3.5-5.1)
[2023-01-16] MEDS: METOPROLOL SUCC 25MG EXT REL TAB PO SCH ×2 (08:16→20:34)
[2023-01-16] MEDS: CITALOPRAM 20 MG TAB PO SCH ×2 (08:16→20:34)
[2023-01-16] MEDS: LOSARTAN POTASSIUM 50 MG TAB PO SCH (08:16)
[2023-01-16] MEDS: TORSEMIDE 20 MG TAB PO SCH (08:16)
[2023-01-16] MEDS: FAMOTIDINE 20 MG in SYRINGE 3 ML IV SCH ×2 (08:19→20:34)
[2023-01-16] MEDS ORDERED: amLODIPine BESYLATE 5 MG TAB PO ONE (09:57)
[2023-01-16] MEDS ORDERED: LIDOCAINE 5% 1 PATCH TD STA (09:57)
[2023-01-16] MEDS ORDERED: hydrALAZINE HCL 20 MG/ML VIAL IV PRN (09:59)
[2023-01-16] MEDS: INSULIN ASPART PER UNIT CHARGE SC SCH ×4 (10:23→20:44)
[2023-01-16] MEDS: PANTOprazole 40 MG in SYRINGE 0 ML IV SCH (10:40)
[2023-01-16] MEDS: LANTUS PER UNIT CHARGE SQ SCH ×2 (10:47→20:38)
[2023-01-16] MEDS: oxyCODONE HCL IR 5 MG TAB (IMMEDIATE RELEASE) PO PRN (10:47)
[2023-01-16] MEDS: SUCRALFATE 1 GM/10 ML UDC PO SCH ×3 (12:57→20:34)
[2023-01-16] MEDS: ACETAMINOPHEN 500 MG TAB PO SCH ×2 (14:25→20:33)
[2023-01-16] MEDS: MELATONIN 3 MG TAB PO PRN (20:33)
[2023-01-16] MEDS: LETROZOLE 2.5 MG TAB PO SCH (20:34)
[2023-01-16] MEDS: allopurinoL 300 MG TAB PO SCH (20:35)
[2023-01-16] MEDS ORDERED: guaiFENesin 600 MG TABCR PO SCH (21:00)
[2023-01-17] MEDS: oxyCODONE HCL IR 5 MG TAB (IMMEDIATE RELEASE) PO PRN ×2 (01:13→19:51)
[2023-01-17] MEDS: LEVOTHYROXINE SODIUM 125 MCG TABLET PO SCH (06:15)
[2023-01-17] MEDS: HEPARIN SOD 5,000 UNIT/0.5 ML VIAL SQ SCH ×3 (06:15→19:51)
[2023-01-17 06:57] LABS: BUN Creatinine Ratio 7.1 (10-20); Calcium 9.3 mg/dl (8.6-10.3); Creatinine Clr Calc Pharmacy 43.1 ml/min; Est GFR (African American) 54.7 ml/min; Est GFR (Non-African American) 47.2 ml/min; Potassium 3.6 mmol/L (3.5-5.1)
[2023-01-17] MEDS: LOSARTAN POTASSIUM 50 MG TAB PO SCH (08:04)
[2023-01-17] MEDS: METOPROLOL SUCC 25MG EXT REL TAB PO SCH ×2 (08:04→19:51)
[2023-01-17] MEDS: TORSEMIDE 20 MG TAB PO SCH (08:04)
[2023-01-17] MEDS: CITALOPRAM 20 MG TAB PO SCH ×2 (08:05→19:51)
[2023-01-17] MEDS: amLODIPine BESYLATE 5 MG TAB PO SCH (08:05)
[2023-01-17] MEDS: PANTOprazole 40 MG in SYRINGE 0 ML IV SCH (08:05)
[2023-01-17] MEDS: LIDOCAINE 5% 1 PATCH TD SCH (08:09)
[2023-01-17] MEDS: ACETAMINOPHEN 500 MG TAB PO SCH ×3 (08:09→22:10)
[2023-01-17] MEDS: LANTUS PER UNIT CHARGE SQ SCH ×2 (08:09→22:09)
[2023-01-17] MEDS: SUCRALFATE 1 GM/10 ML UDC PO SCH ×4 (08:09→19:51)
[2023-01-17] MEDS: INSULIN ASPART PER UNIT CHARGE SC SCH ×4 (08:10→22:02)
[2023-01-17] MEDS: FAMOTIDINE 20 MG in SYRINGE 3 ML IV SCH (10:19)
[2023-01-17 11:18] LABS: Urine Total Protein 45.3 mg/dl
[2023-01-17 13:45] LABS: Total Protein 24 Hour Urine 498.3 mg/24 Hr (0-149.1)
--- NOTE | 2023-01-17 14:28 | Electrocardiogram Report ---
Test Reason : Blood Pressure : / mmHG Vent. Rate : 061 BPM Atrial Rate : 061 BPM P-R Int : 166 ms QRS Dur : 138 ms QT Int : 494 ms P-R-T Axes : 051 -48 106 degrees QTc Int : 497 ms Normal sinus rhythm Left axis deviation Left bundle branch block Abnormal ECG When compared with ECG of 15-JAN-2023 11:17, T wave inversion more evident in Lateral leads Confirmed by Jaden Gomez ([id number]) on 01/17/2023 2:27:47 PM Referred By: REFERRED SELF Confirmed By:Estrada Gomez
--- NOTE | 2023-01-17 14:55 | Hospitalist Progress Note ---
Date of Service January 17, 2023 Assessment & Plan (1) Nausea & vomiting: Plan: Intermittent nausea since October per pt, but recently worsened x 2 days; vomiting with food/fluid intake and dry heaving Suspected gastritis secondary to recent NSAID use - 1-2 ibuprofen tabs every 6 hours over the past week for her chronic lumbosacral pain continue Pantoprazole 40 mg IV daily , on Carafate. Discontinue famotidine today Plan to discharge on oral pantoprazole Ondansetron 4mg IV q4h PRN for nausea, monitor QTc with daily EKG seems to be improving at this time no melena (2) Hypertension: Plan: BP 216/133 on arrival IV labetalol given in the ED Patient not taking PO meds due to nausea and vomiting, will given PO meds with apple sauce as able - metoprolol succinate, torsemide, losartan IV hydralazine 5mg q4h PRN for sBP > 180 while PO medications re-introduced curbside 8 nephrology feels some of her proteinuria is from her hypertensive renal disease at this point time control blood pressure and have a 24-hour urine collection. If need be the patient can have follow-up in the office. (3) Lumbosacral pain: Plan: Chronic; secondary to subacute compression fracture L4&L5 patient also with spinal stenosis between L4 and 5 due to herniated disc Ambulatory assist device (cane) Degenerative spondylolisthesis scheduled acetaminophen lidocaine patch and oxycodone for lumbar fractures Per patient, tramadol may have exacerbated her nausea; avoid for now (4) Hypokalemia: Plan: K 3.1 on arrival, likely secondary to vomiting Continue potassium supplementation in IV fluids; target K>4 Mag replete but low (5) Hypothyroid: Plan: Elevated TSH 116 on arrival. no hypothermia/hyponatremia/hypotension/AMS Per patient, has not been taking levothyroxine the last 5 days due to vomiting Continue levothyroxine do not think a few days of missing it would have such a drastic change in her numbers will increase to 125 recommend outpatient follow- up (6) History of breast cancer: Plan: Original Dx in 2012; radical mastectomy with reconstruction on 03/01/2013 On letrozole 2.5 mg p.o. (7) Diabetes: Plan: Last A1c was 7.2 on 10/02/2022, repeat with AM labs Hold metformin during inaptient admission Start Lantus 0-5 units BID depending on glucose <120> Novolog: --Goal BSG Range: Low 110 mg/dL, High 140 mg/dL --Correction Factor: 45 mg/dL/unit --Carbohydrate ratio = 15 g/unit --BSGs ACHS if eating, q6h if npo Plan VTE Prophylaxis - heparin 5000 units SQ q8h Diet - clears, T2DM Admission and Anticipated Discharge Date Admission Date: January 15, 2023 Subjective patient feels better overall. However she still has back pain. She has not had a bowel movement in the past few days. Review of Systems Review of Systems: All systems reviewed & are unremarkable except as noted in Subjective Physical Exam Physical Exam: General: Awake, conversant Heart: S1, S2/regular rate and rhythm, no murmur rubs or gallops Lungs: Clear to auscultation bilaterally. Normal effort Abdomen: Soft/nontender/nondistended. No hepatosplenomegaly Extremities: No clubbing/cyanosis. No edema Behavior: Appropriate, cooperative Results & Data Results & Data Vital Signs (Past 12 Hours) Vital Signs Temp Pulse Pulse Resp BP Pulse Ox O2 Del Method 01/17/23 11:38 36.6 C 67 16 143/88 H 93 Room Air 01/17/23 08:00 58 L 01/17/23 07:47 36.5 C 63 16 147/76 H 92 Room Air 01/17/23 03:26 36.6 C 62 12 136/79 98 Room Air 01/17/23 03:19 68 Laboratory Results Abnormal lab results 01/16/23 01/16/23 01/17/23 Range/Units 17:14 20:21 06:17 BUN/Creatinine Ratio 7.1 L (10-20) Glucose 119 H (70-99(Fasting)) mg/dl POC Glucose 111 H 120 H (70-99) mg/dl Ur Total Protein 24 Hr (0-149.1) mg/24 Hr 01/17/23 01/17/23 01/17/23 Range/Units 08:25 10:15 11:49 BUN/Creatinine Ratio (10-20) Glucose (70-99(Fasting)) mg/dl POC Glucose 143 H 112 H (70-99) mg/dl Ur Total Protein 24 Hr 498.3 H (0-149.1) mg/24 Hr PG Care Time/CCT Total # of Minutes Spent Total Time Spent with Patient: Total time spent is greater than 50% in coordination of care (as documented) at patient's floor/unit and/or counseling patient: Coding Level of Care Code 68166 SUB INP/OBS CARE 2/35MIN Diagnoses Nausea & vomiting R11.2 Hypertension I10 Hypertension type: essential hypertension Lumbosacral pain M54.50 Hypokalemia E87.6 Hypothyroid E03.9 History of breast cancer Z85.3 Diabetes E11.8 Diabetes mellitus complication status: with unspecified complications Diabetes mellitus fdc insulin use: without regional intermodal truck driver use Diabetes mellitus type: type 2 (2) Hypertension Hypertension type: essential hypertension Qualified Code(s): I10 - Essential (primary) hypertension (7) Diabetes Diabetes mellitus complication status: with unspecified complications Diabetes mellitus regional intermodal truck driver insulin use: without regional intermodal truck driver use Diabetes mellitus type: type 2 Qualified Code(s): E11.8 - Type 2 diabetes mellitus with unspecified complications
[2023-01-17] MEDS: POLYETHYLENE (MIRALAX) 17 GM PACK PO SCH (18:05)
[2023-01-17] MEDS: allopurinoL 300 MG TAB PO SCH (19:52)
[2023-01-17] MEDS: LETROZOLE 2.5 MG TAB PO SCH (19:52)
[2023-01-17] MEDS: DOCUSATE SODIUM 100 MG CAP PO SCH (19:52)
[2023-01-17] MEDS: ACETAMINOPHEN 325 MG TAB PO PRN (22:46)
[2023-01-18] MEDS: LEVOTHYROXINE SODIUM 125 MCG TABLET PO SCH (06:16)
[2023-01-18] MEDS: HEPARIN SOD 5,000 UNIT/0.5 ML VIAL SQ SCH (06:17)
[2023-01-18 06:37] LABS: Hematocrit (blood only) 38.8 % (37.0-47.0); Hemoglobin 12.8 g/dl (12.0-16.0); Mean Corpuscular Volume 91.1 fL (80.0-100.0); Mean Platelet Volume 10.6 fL (9.4-12.4); Platelet Count 191 K/uL (130-400); RDW Coefficient of Variation 14.3 % (11.5-14.5); RDW Standard Deviation 47.5 fL (36.4-46.3); Red Blood Count 4.26 M/uL (4.20-5.40); White Blood Count 4.64 K/ul (4.8-10.8)
[2023-01-18 06:56] LABS: BUN Creatinine Ratio 9.7 (10-20); Calcium 9.5 mg/dl (8.6-10.3); Creatinine Clr Calc Pharmacy 43.1 ml/min; Est GFR (African American) 54.7 ml/min; Est GFR (Non-African American) 47.2 ml/min; Potassium 3.6 mmol/L (3.5-5.1)
[2023-01-18] MEDS: CITALOPRAM 20 MG TAB PO SCH (08:57)
[2023-01-18] MEDS: SUCRALFATE 1 GM/10 ML UDC PO SCH ×2 (08:57→13:42)
[2023-01-18] MEDS: TORSEMIDE 20 MG TAB PO SCH (08:58)
[2023-01-18] MEDS: METOPROLOL SUCC 25MG EXT REL TAB PO SCH (08:58)
[2023-01-18] MEDS: LOSARTAN POTASSIUM 50 MG TAB PO SCH (08:58)
[2023-01-18] MEDS: PANTOprazole 40 MG in SYRINGE 0 ML IV SCH (08:58)
[2023-01-18] MEDS: amLODIPine BESYLATE 5 MG TAB PO SCH (08:58)
[2023-01-18] MEDS: LIDOCAINE 5% 1 PATCH TD SCH (08:58)
[2023-01-18] MEDS: LANTUS PER UNIT CHARGE SQ SCH (08:59)
[2023-01-18] MEDS: INSULIN ASPART PER UNIT CHARGE SC SCH ×2 (08:59→13:42)
[2023-01-18] MEDS: POLYETHYLENE (MIRALAX) 17 GM PACK PO SCH (08:59)
[2023-01-18] MEDS: ACETAMINOPHEN 500 MG TAB PO SCH ×2 (08:59→13:42)
[2023-01-18] MEDS: DOCUSATE SODIUM 100 MG CAP PO SCH (09:00)
--- NOTE | 2023-01-18 11:38 | Discharge Summary ---
Date of Service January 18, 2023 Admission HPI Per Admitting Provider Abi Montemayor is a 77-year-old female with PMH of breast cancer, HLD, depression, hypothyroidism, vitamin D deficiency, lumbosacral pain, right leg sciatica, CARINA, T2DM, CKD stage III, and HTN. She presents with nausea, vomiting, and dehydration much worse the last 2 days; however, endorses ongoing, intermittent nausea since October which recently worsened. Per patient, N/V/D worsened after being prescribed pain medicine (tramadol 50 mg 3 times daily; tizanidine 4 mg every 12 hours) by Dr. Adam for her chronic lumbosacral pain. Took medication 1 week as prescribed, then stopped, which improved her symptoms. F amotidine and Tums also helped. Symptoms progressed 2 days ago and she has "not been able to keep anything down" since. No sick contacts. No leukocytosis. No fever. She endorses prior dysphagia and was due to have an EGD previously but anesiology declined since she has a left bundle branch block. BP markedly elevated at 216/133 on arrival; patient can't keep BP meds down due to vomiting. Patient endorses headache (intermittent, chronic), dizziness, and b/l hamstring pain secondary to lumbosacral pain. Patient denies recent fever, chills, night sweats, hematemesis, CP, SOB, abdominal pain, saddle anesthesia, blood in urine or stool, urinary symptoms, or swelling in the legs. Admission Exam Per Admitting Provider Constitutional: WD/WN, vitals as above Eyes: PERRL, conjunctivae normal, anicteric sclerae ENMT: external ear and nose normal, oropharynx normal Respiratory: normal respiratory effort, lungs clear to auscultation Cardiovascular: RRR, no murmur, no edema Gastrointestinal (Abdomen): normal bowel sounds, soft, nontender, no hepatosplenomegaly Musculoskeletal: no cyanosis or clubbing, extremities motor strength 5/5 Skin: no rashes, warm and dry Neurologic: moves all extremities and awake; no focal motor deficits and not confused Psychiatric: A+Ox3, euthymic affect Genitourinary: no CVA tenderness Principal Diagnosis Gastritis secondary to NSAID overuse Back pain leading to NSAID overuse Discharge Exam General: Awake, conversant Heart: S1, S2/regular rate and rhythm, no murmur rubs or gallops Lungs: Clear to auscultation bilaterally. Normal effort Abdomen: Soft/nontender/nondistended. No hepatosplenomegaly Extremities: No clubbing/cyanosis. No edema Behavior: Appropriate, cooperative Discharge Data Allergies Allergy/AdvReac Type Severity Reaction Status Date / Time diltiazem Allergy Mild RASH Verified 12/11/22 09:05 fluoxetine Allergy Mild RASH Verified 12/11/22 09:05 valsartan Allergy Mild SHORTNESS Verified 12/11/22 09:05 OF BREATH adhesive Allergy Unknown RASH WITH Verified 12/11/22 09:05 BANDAIDS cat dander Allergy Unknown Unknown Verified 12/11/22 09:05 ragweed pollen Allergy Unknown NASAL Verified 12/11/22 09:05 IRRITATION,STUFFINESS tree and shrub pollen Allergy Unknown BIRCH Verified 12/11/22 09:05 TREES-CONGESTION ramipril Allergy Cough Verified 12/11/22 09:05 onion AdvReac Unknown RAW-GI Verified 12/11/22 09:05 UPSET Consultations 01/17/23 15:07 Consult JANIE drafting layout man Routine Ordered Studies 01/15/23 12:30 CT head/brain wo con Stat 01/15/23 12:37 CT Abd and Pelvis [CT abd pelvis wo con] Stat Hospital Course (1) Nausea & vomiting: Intermittent nausea since October per pt, but recently worsened x 2 days; vomiting with food/fluid intake and dry heaving Suspected gastritis secondary to recent NSAID use - 1-2 ibuprofen tabs every 6 hours over the past week for her chronic lumbosacral pain continue Pantoprazole 40 mg IV daily , on Carafate. Plan to discharge on oral pantoprazole and oral Carafate for a week seems to be improving at this time no melena (2) Hypertension: BP 216/133 on arrival IV labetalol given in the ED Patient not taking PO meds due to nausea and vomiting, will given PO meds with apple sauce as able - metoprolol succinate, torsemide, losartan. Norvasc added to regimen curbside nephrology feels some of her proteinuria is from her hypertensive renal disease at this point time control blood pressure and have a 24-hour urine collection. Advised to follow-up with nephrology outpatient (3) Lumbosacral pain: Chronic; secondary to subacute compression fracture L4&L5 patient also with spinal stenosis between L4 and 5 due to herniated disc Ambulatory assist device (cane) Degenerative spondylolisthesis scheduled acetaminophen lidocaine patch and oxycodone for lumbar fractures Per patient, tramadol may have exacerbated her nausea; avoid for now Discharged the patient on oxycodone for pain (4) Hypokalemia: K 3.1 on arrival, likely secondary to vomiting repleted Mag repleted (5) Hypothyroid: Elevated TSH 116 on arrival. no hypothermia/hyponatremia/hypotension/AMS Per patient, has not been taking levothyroxine the last 5 days due to vomiting Continue levothyroxine do not think a few days of missing it would have such a drastic change in her numbers will increase to 125 recommend outpatient follow- up (6) History of breast cancer: Original Dx in 2012; radical mastectomy with reconstruction on 03/01/2013 On letrozole 2.5 mg p.o. (7) Diabetes: Last A1c was 7.2 on 10/02/2022, repeat with AM labs Hold metformin during inaptient admission Start Lantus 0-5 units BID depending on glucose <120> Novolog: --Goal BSG Range: Low 110 mg/dL, High 140 mg/dL --Correction Factor: 45 mg/dL/unit --Carbohydrate ratio = 15 g/unit --BSGs ACHS if eating, q6h if npo Total Time Total Time Spent Total Time Spent (In Minutes): 35 Discharge Plan Discharge Items Patient Disposition: Home - Self-Care Reason For Visit: HYPERTENSIVE URGENCY, INTRACTABLE NAUSEA/VOMITING Discharge Diagnosis: Gastritis likely due to NSAID overuse Intractable back pain chronic secondary to subacute compression fracture at L4 and L5 and spinal stenosis due to herniated disc Proteinuria, follow-up with nephrology advised Activity: Resume your previous activity Non-emergency contact: Primary Care Provider Call non-emergency contact if: you have any medication questions and your symptoms worsen Follow-up/Referrals: Mitzi Marquez MD [Primary Care Provider] - 01/28/23 11:00 am Diet: Carb Consistent or DM2 Addtl Attending Provider Instructions: Advised to follow-up with PCP in 1 week Advised to follow-up with security systems installer in 2 weeks Pending Studies at Discharge: No Stand[facility]Alone [facility] Medications and DC Order Prescriptions: New amlodipine [Norvasc] 5 mg Tablet 5 mg PO QAM 30 Days Qty: 30 0RF oxycodone 5 mg Tablet 5 mg PO Q6H PRN (Reason: pain) 3 Days Qty: 14 0RF sucralfate 100 mg/mL Suspension 1 g PO QID 7 Days Qty: 280 0RF levothyroxine [Synthroid] 125 mcg Tablet 125 mcg PO DAILYBB 30 Days Qty: 30 0RF oxycodone 5 mg capsule 5 mg PO Q6H PRN (Reason: moderate back pain) Qty: 14 0RF Continued omeprazole 20 mg tablet,delayed release (DR/EC) 20 mg PO DAILY Qty: 90 3RF simvastatin 10 mg tablet 10 mg PO QPM Qty: 90 3RF losartan 50 mg tablet 50 mg PO QAM Qty: 90 3RF metoprolol succinate 25 mg tablet extended release 24 hr 25 mg PO BID Qty: 180 3RF alprazolam [Xanax] 0.5 mg tablet 0.5 mg PO .COMPLEX Qty: 2 0RF Rx Instructions: 1 pill 1 hour before MRI study, the second pill just before the study. metformin 500 mg tablet extended release 24 hr 500 mg PO BID Rx Instructions: Regular ER, not MOD or OSM aspirin [Aspir-81] 81 mg Tablet,Delayed Release (Dr/Ec) 81 mg PO HS letrozole 2.5 mg Tablet 2.5 mg PO QPM cholecalciferol (vitamin D3) [Vitamin D3] 1,000 unit Capsule 1,000 unit PO QAM Fiber Gummies 2 gram Tablet,Chewable 2 g PO QAM clobetasol 0.05 % Lotion 1 applic TOPICAL BID PRN (Reason: Rash) biotin 1 mg Capsule 1 mg PO QAM acetaminophen [Tylenol Extra Strength] 500 mg Tablet 1,000 mg PO HS PRN (Reason: Restless Leg(S)) Multivitamin Gummies 2 ea PO DAILY torsemide 20 mg tablet 20 mg PO DAILY Rx Instructions: TAKE 1 TABLET DAILY citalopram 20 mg tablet 20 mg PO BID allopurinol 300 mg tablet 300 mg PO PM Rx Instructions: TAKE 1 TABLET EVERY EVENING Discontinued levothyroxine 112 mcg tablet 112 mcg PO DAILY Qty: 90 3RF Discharge Orders: Discharge Order (Routine); Ordered 01/18/23 Ordered By: Sabine Villegas/Other Patient Handouts: Managing Type 2 Diabetes Admission Data Admit Date/Time: 01/17/23 14:30 Attending Provider: Sabine Harper Admit Provider: Josiah Albert Primary Care Provider: Mitzi Marquez Other Interventions: Discharge Summary Assessment (RN) Last Done: 01/18/23 12:57 Coding Level of Care Code 84572 INP/OBS DISCH >30 MIN Diagnoses Nausea & vomiting R11.2 Hypertension I10 Hypertension type: essential hypertension Lumbosacral pain M54.50 Hypokalemia E87.6 Hypothyroid E03.9 History of breast cancer Z85.3 Diabetes E11.8 Diabetes mellitus complication status: with unspecified complications Diabetes mellitus fpc insulin use: without fpc use Diabetes mellitus type: type 2
[2023-01-18] MEDS: ONDANSETRON INJ 2 MG/ML 2 ML VIAL IV PRN (13:42)
== END 2023-01-18 16:57 | disposition home or self-care (01) | DRG 392 ==
LOC: ED 10:51 → 2N 10:51 → SUATTDRO 15:38 → 2N 21:31

== ENCOUNTER 2023-12-05 17:42 | Inpatient (IN) ==
--- NOTE | 2023-12-05 18:00 | ED Triage Note ---
Date of Service December 05, 2023 Provider in Triage Author: Blayne Castaneda History of Present Illness This patient was briefly evaluated while in triage. An abbreviated physical exam was performed. 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 Nontender to palpation. Initial orders for labs and / or imaging were placed and patient was placed in the waiting area until a bed is available. Please see further documentation for the full ED course.
[2023-12-05 18:38] LABS: Partial Thromboplastin Ratio 1.1; Partial Thromboplastin Time 29 Seconds (21-31); Prothrombin Time 10.9 Seconds (9.0-12.0)
[2023-12-05 18:44] LABS: Hematocrit (blood only) 22.1 % (37.0-47.0); Hemoglobin 6.7 g/dl (12.0-16.0); Mean Corpuscular Hemoglobin 27.9 pg (25.0-34.0); Mean Corpuscular Hgb Conc 30.3 g/dL (32.0-36.0); Mean Corpuscular Volume 92.1 fL (80.0-100.0); Mean Platelet Volume 10.4 fL (9.4-12.4); Platelet Count 239 K/uL (130-400); RDW Coefficient of Variation 17.8 % (11.5-14.5); RDW Standard Deviation 58.1 fL (36.4-46.3); White Blood Count 5.86 K/ul (4.8-10.8)
[2023-12-05] MEDS ORDERED: SODIUM CHLORIDE 0.9% 250 ML IV PRN ×2 (18:48→21:43)
[2023-12-05 18:50] LABS: Albumin Globulin Ratio 1.2 (0.9-2); Albumin Level 3.7 gm/dl (3.4-5.0); BUN Creatinine Ratio 14.7 (10-20); Bilirubin,Total 0.3 mg/dl (0.2-1.0); Calcium 9.6 mg/dl (8.6-10.3); Creatinine Clr Calc Pharmacy 35.8 ml/min; Est GFR (African American) 43.4 ml/min; Est GFR (Non-African American) 37.4 ml/min; Globulin 3.1 gm/dl (2.5-4.0); Potassium 4.1 mmol/L (3.5-5.1); Total Protein 6.8 gm/dl (6.0-8.3)
[2023-12-05 18:54] LABS: Troponin I High Sensitivity 6.6 pg/ml (0-14)
[2023-12-05 18:58] LABS: Basophils # (auto) 0.07 K/uL (0.00-0.20); Basophils % (auto) 1.2 %; Eosinophils # (auto) 0.37 K/uL (0.00-0.50); Eosinophils % (auto) 6.3 %; Immature Granulocytes # (auto) 0.03 K/uL (0.01-0.20); Immature Granulocytes % (auto) 0.5 %; Lymphocytes # (auto) 1.08 K/uL (1.20-3.40); Lymphocytes % (auto) 18.4 %; Monocytes % (auto) 8.5 %; Neutrophils # (auto) 3.81 K/uL (1.40-6.50); Neutrophils % (auto) 65.1 %; Polychromasia 1+; Stomatocytes 1+
[2023-12-05] MEDS: PANTOprazole 80 MG in DEXTROSE 5% 100 ML IV ONE (19:17)
[2023-12-05] MEDS: PANTOPRAZOLE BOLUS/DRIP IV STA (19:44)
[2023-12-05] MEDS: PANTOprazole 40 MG in DEXTROSE 5% MINI-B 100 ML IV SCH (19:44)
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
[2023-12-05] MEDS ORDERED: CARBOHYDRATES FOR HYPOGLYCEMIA PO PRN (21:58)
[2023-12-05] MEDS ORDERED: DEXTROSE 50% 50 ML SYRINGE IV PRN (21:58)
[2023-12-05] MEDS ORDERED: GLUCOSE 40% GEL 15 GM TUBE PO PRN (21:58)
[2023-12-05] MEDS ORDERED: GLUCAGON FOR INJ 1 MG VIAL SQ PRN (21:58)
[2023-12-05] MEDS ORDERED: GLUCOSE 10 TAB/TUBE PO PRN (21:58)
[2023-12-05] MEDS: INSULIN ASPART PER UNIT CHARGE SC STA (22:51)
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
[2023-12-06] MEDS: ACETAMINOPHEN 325 MG TAB PO PRN (00:25)
[2023-12-06 04:06] LABS: Hematocrit (blood only) 24.6 % (37.0-47.0); Hemoglobin 7.6 g/dl (12.0-16.0); Mean Corpuscular Hemoglobin 28.1 pg (25.0-34.0); Mean Corpuscular Hgb Conc 30.9 g/dL (32.0-36.0); Mean Corpuscular Volume 91.1 fL (80.0-100.0); Mean Platelet Volume 10.6 fL (9.4-12.4); Platelet Count 206 K/uL (130-400); RDW Coefficient of Variation 16.6 % (11.5-14.5); RDW Standard Deviation 54.4 fL (36.4-46.3); White Blood Count 5.13 K/ul (4.8-10.8)
[2023-12-06 04:19] LABS: Albumin Globulin Ratio 1.2 (0.9-2); Albumin Level 3.4 gm/dl (3.4-5.0); BUN Creatinine Ratio 14.7 (10-20); Bilirubin,Total 0.5 mg/dl (0.2-1.0); Calcium 9.3 mg/dl (8.6-10.3); Creatinine Clr Calc Pharmacy 37.6 ml/min; Est GFR (African American) 46.3 ml/min; Est GFR (Non-African American) 39.9 ml/min; Globulin 2.8 gm/dl (2.5-4.0); Magnesium 1.9 mg/dl (1.7-2.4); Potassium 4.4 mmol/L (3.5-5.1); Total Protein 6.2 gm/dl (6.0-8.3)
[2023-12-06] MEDS: INSULIN ASPART PER UNIT CHARGE SC SCH ×2 (05:51→13:08)
[2023-12-06] MEDS: LEVOTHYROXINE SODIUM 125 MCG TABLET PO SCH (06:26)
[2023-12-06] MEDS: METOPROLOL SUCC 25MG EXT REL TAB PO SCH (09:51)
[2023-12-06] MEDS: GABAPENTIN 600 MG TAB PO SCH (09:51)
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
[2023-12-06 10:54] LABS: Hematocrit (blood only) 26.6 % (37.0-47.0); Hemoglobin 8.3 g/dl (12.0-16.0); Mean Corpuscular Hemoglobin 28.2 pg (25.0-34.0); Mean Corpuscular Hgb Conc 31.2 g/dL (32.0-36.0); Mean Corpuscular Volume 90.5 fL (80.0-100.0); Mean Platelet Volume 10.8 fL (9.4-12.4); Platelet Count 207 K/uL (130-400); RDW Standard Deviation 54.2 fL (36.4-46.3); Red Blood Count 2.94 M/uL (4.20-5.40); White Blood Count 5.93 K/ul (4.8-10.8)
[2023-12-06 16:19] LABS: Hematocrit (blood only) 25.9 % (37.0-47.0); Mean Corpuscular Hemoglobin 27.9 pg (25.0-34.0); Mean Corpuscular Hgb Conc 30.9 g/dL (32.0-36.0); Mean Corpuscular Volume 90.2 fL (80.0-100.0); Mean Platelet Volume 10.6 fL (9.4-12.4); Platelet Count 204 K/uL (130-400); RDW Coefficient of Variation 17.1 % (11.5-14.5); RDW Standard Deviation 54.1 fL (36.4-46.3); Red Blood Count 2.87 M/uL (4.20-5.40)
--- NOTE | 2023-12-06 16:39 | Hospitalist Progress Note ---
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 Patient was also taking ibuprofen and Advil PM on a daily basis She has been without abdominal pain or bright bloody bowel movements and has remained stable Currently receiving her first unit of packed red blood cells Long discussion with [place] neurosurgery due to her recent diagnosis of basilar restenosis and current GI bleed > Plan at this time is to hold the patient's Eliquis but continue her daily 81 mg aspirin until she is stable from her GI bleed > Once patient is stable from her GI bleed her Eliquis can be restarted > If patient remains stable and without neurologic symptoms she can have repeat CTA/CTV of the head/brain in approximately 1 month outpatient > If patient were to develop new neurologic symptoms then stroke alert should be started for further evaluation. If new clinical findings would warrant they would then transfer the patient to [place] for further intervention. Will give the patient additional unit of packed red blood cells after her first unit is complete to ensure she has good perfusion of her brain Continue pantoprazole drip at this time Hold patient's Eliquis continue 81 mg at bedtime aspirin at this time Monitor CBC every 6 hours after her second unit of packed red blood cells is complete, would aim to keep hemoglobin at or above 8 to ensure good brain perfusion GI recs appreciated Bilateral SCDs for DVT prophylaxis AM CBC, CMP, mag, PT/INR (2) Basilar artery thrombosis: Plan: Patient was diagnosed with basilar artery thrombosis during her admission at [facility] on 10/29/2023 - 11/01/2023 Had been started on Eliquis and 81 mg aspirin since her last admission to [facility] After discussions with [place] neurosurgery we will continue 81 mg aspirin daily while holding her Eliquis for now If any new neurologic symptoms present stroke alert should be started for f urther evaluation and discussion with [place] neurosurgery to determine if transfer will be needed for any intervention Patient's Eliquis should be restarted when she is stable from her GI bleed The patient remained stable throughout this admission she should have repeat CTA/CTV obtained approximately 1 month for further evaluation (3) Hypertension: Plan: Patient has been stable Will hold patient's losartan and torsemide for now to prevent hypotension Will continue metoprolol for now (4) HLD (hyperlipidemia): Plan: Continue statin (5) Type 2 diabetes mellitus with chronic kidney disease: Plan: Hold metformin Monitor BSG every 6 hours while NPO, goal is [id number] Start CF of 50 and CR of 15 every 6 hours for now Adjust regimen as needed Plan Patient was discussed with Dr. 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 Physical Exam Physical Exam: Gen: no acute distress HEENT: NC/AT, MMM CVS: s1s2nl, RRR Lungs: CTAB Abd: soft, NT, nl BS Ext: no edema Neuro: ambulating well Psych: pleasant, communicating appropriately Results & Data Results & Data Vital Signs (Past 12 Hours) Vital Signs Temp Pulse Pulse Resp BP Pulse Ox O2 Del Method 12/06/23 16:01 36.8 C 69 16 134/76 93 Room Air 12/06/23 14:20 70 12/06/23 11:18 36.8 C 72 18 137/81 94 Room Air 12/06/23 07:37 70 12/06/23 07:18 36.7 C 65 18 133/79 98 Room Air PG Care Time/CCT Total # of Minutes Spent Total Time Spent with Patient: Total time spent is greater than 50% in coordination of care (as documented) at patient's floor/unit and/or counseling patient: Coding Level of Care Code 36634 SUB INP/OBS CARE 2/35MIN Diagnoses Anemia D64.9 Basilar artery thrombosis I65.1 Essential hypertension I10 Hypertension type: essential hypertension Hyperlipidemia, unspecified hyperlipidemia type E78.5 Hyperlipidemia type: unspecified Type 2 diabetes mellitus with chronic kidney disease E11.22 (3) Hypertension Hypertension type: essential hypertension Qualified Code(s): I10 - Essential (primary) hypertension (4) HLD (hyperlipidemia) Hyperlipidemia type: unspecified Qualified Code(s): E78.5 - Hyperlipidemia, unspecified
[2023-12-06] MEDS: SIMVASTATIN 10 MG TAB PO SCH (20:35)
[2023-12-06] MEDS: ASPIRIN 81 MG ECTAB PO SCH (20:35)
[2023-12-06 21:45] LABS: Hematocrit (blood only) 24.5 % (37.0-47.0); Hemoglobin 7.6 g/dl (12.0-16.0); Mean Corpuscular Hemoglobin 27.5 pg (25.0-34.0); Mean Corpuscular Volume 88.8 fL (80.0-100.0); Mean Platelet Volume 10.3 fL (9.4-12.4); Platelet Count 201 K/uL (130-400); RDW Coefficient of Variation 17.2 % (11.5-14.5); RDW Standard Deviation 54.2 fL (36.4-46.3); Red Blood Count 2.76 M/uL (4.20-5.40); White Blood Count 5.61 K/ul (4.8-10.8)
[2023-12-06] MEDS ORDERED: SODIUM CHLORIDE 0.9% 250 ML IV PRN ×2 (21:50→22:58)
[2023-12-07 04:35] LABS: Hematocrit (blood only) 28.3 % (37.0-47.0); Hemoglobin 8.7 g/dl (12.0-16.0); Mean Corpuscular Hemoglobin 28.1 pg (25.0-34.0); Mean Corpuscular Hgb Conc 30.7 g/dL (32.0-36.0); Mean Corpuscular Volume 91.3 fL (80.0-100.0); Mean Platelet Volume 10.6 fL (9.4-12.4); Platelet Count 199 K/uL (130-400); RDW Coefficient of Variation 17.3 % (11.5-14.5); RDW Standard Deviation 55.7 fL (36.4-46.3); White Blood Count 4.95 K/ul (4.8-10.8)
[2023-12-07 04:41] LABS: Prothrombin Time 10.9 Seconds (9.0-12.0)
[2023-12-07 04:55] LABS: Albumin Globulin Ratio 1.2 (0.9-2); Albumin Level 3.3 gm/dl (3.4-5.0); BUN Creatinine Ratio 11.2 (10-20); Bilirubin,Total 0.6 mg/dl (0.2-1.0); Calcium 9.6 mg/dl (8.6-10.3); Creatinine Clr Calc Pharmacy 41.9 ml/min; Est GFR (African American) 52.6 ml/min; Est GFR (Non-African American) 45.4 ml/min; Globulin 2.8 gm/dl (2.5-4.0); Magnesium 1.8 mg/dl (1.7-2.4); Potassium 4.4 mmol/L (3.5-5.1); Total Protein 6.1 gm/dl (6.0-8.3)
--- NOTE | 2023-12-07 07:09 | Hospitalist Progress Note ---
Date of Service December 07, 2023 Assessment & Plan (1) Anemia: (2) Basilar artery thrombosis: (3) Hypertension: (4) HLD (hyperlipidemia): (5) Type 2 diabetes mellitus with chronic kidney disease: Plan 78-year-old female with a past medical history significant for recently diagnosed transverse sinus thrombosis at [facility] in October of this year (started on Eliquis), DM type II, hypothyroidism, hyperlipidemia, and hypertension who presented to the [facility] ED on 12/05/2023 after outpatient labs noted A hemoglobin of 6.4 (down from approximately 10 as of last month).Pt was having melanotic stool since being started on anticoagulation last month during her admission at [facility] after her diagnosis of basilar artery thrombosis. Patient was also taking ibuprofen and Advil PM on a daily basis. Per discussion with [place] neurosurgery: > Plan at this time is to hold the patient's Eliquis but continue her daily 81 mg aspirin until she is stable from her GI bleed > Once patient is stable from her GI bleed her Eliquis can be restarted > If patient remains stable and without neurologic symptoms she can have repeat CTA/CTV of the head/brain in approximately 1 month outpatient > If patient were to develop new neurologic symptoms then stroke alert should be started for further evaluation. If new clinical findings would warrant they would then transfer the patient to [place] for further intervention. #Anemia: - Cont PCU level of care Currently stable and nontoxic-appearing - s/p 2 units of PRBC Continue pantoprazole drip at this time Hold patient's Eliquis, continue 81 mg at bedtime aspirin at this time Monitor CBC closely, would aim to keep hemoglobin at or above 8 to ensure good brain perfusion GI recs appreciated, plan for EGD on Friday Bilateral SCDs for DVT prophylaxis AM CBC, CMP, mag, PT/INR #Basilar artery thrombosis: Patient was diagnosed with basilar artery thrombosis during her admission at [facility] on 10/29/2023 - 11/01/2023 Had been started on Eliquis and 81 mg aspirin since her last admission to [facility] After discussions with [place] neurosurgery we will continue 81 mg aspirin daily while holding her Eliquis for now If any new neurologic symptoms present stroke alert should be started for further evaluation and discussion with [place] neurosurgery to determine if transfer will be needed for any intervention Patient's Eliquis should be restarted when she is stable from her GI bleed The patient remained stable throughout this admission she should have repeat CTA/CTV obtained approximately 1 month for further evaluation #Hypertension: Patient has been stable Will hold patient's losartan and torsemide for now to prevent hypotension Will continue metoprolol for now #HLD (hyperlipidemia): Continue statin #Type 2 diabetes mellitus with chronic kidney disease: Hold metformin Monitor BSG every 6 hours while NPO, goal is [id number] Start CF of 50 and CR of 15 every 6 hours for now Adjust regimen as needed Admission and Anticipated Discharge Date Admission Date: December 05, 2023 Subjective No acute events overnight Currently no new complaints no BM now since yesterday Physical Exam Physical Exam: Gen: no acute distress HEENT: NC/AT, MMM CVS: s1s2nl, RRR Lungs: CTAB Abd: soft, NT, nl BS Ext: no edema Neuro: ambulating well Psych: pleasant, communicating appropriately Results & Data Results & Data Vital Signs (Past 12 Hours) Vital Signs Temp Pulse Pulse Resp BP BP BP 12/07/23 03:49 36.4 C L 70 16 136/81 12/07/23 01:47 36.4 C L 64 18 119/74 12/07/23 01:15 36.3 C L 67 16 117/68 12/07/23 00:15 36.3 C L 65 18 116/72 12/06/23 23:45 36.7 C 70 18 130/78 12/06/23 23:30 36.7 C 67 18 129/79 12/06/23 23:15 36.5 C 94 H 18 159/90 H 12/06/23 22:44 36.8 C 71 18 124/73 12/06/23 22:04 67 12/06/23 19:07 36.8 C 74 18 123/71 Pulse Ox O2 Del Method 12/07/23 03:49 93 Room Air 12/07/23 01:47 94 12/07/23 01:15 93 12/07/23 00:15 93 12/06/23 23:45 95 12/06/23 23:30 95 12/06/23 23:15 94 12/06/23 22:44 94 Room Air 12/06/23 22:04 12/06/23 19:07 94 Room Air PG Care Time/CCT Total # of Minutes Spent Total Time Spent with Patient: Total time spent is greater than 50% in coordination of care (as documented) at patient's floor/unit and/or counseling patient: Coding Level of Care Code 95078 SUB INP/OBS CARE 2/35MIN Diagnoses Anemia D64.9 Basilar artery thrombosis I65.1 Essential hypertension I10 Hypertension type: essential hypertension Hyperlipidemia, unspecified hyperlipidemia type E78.5 Hyperlipidemia type: unspecified Type 2 diabetes mellitus with chronic kidney disease E11.22 (3) Hypertension Hypertension type: essential hypertension Qualified Code(s): I10 - Essential (primary) hypertension (4) HLD (hyperlipidemia) Hyperlipidemia type: unspecified Qualified Code(s): E78.5 - Hyperlipidemia, unspecified
--- NOTE | 2023-12-07 09:27 | Gastroenterology Progress Note ---
Date of Service December 07, 2023 Assessment & Plan (1) GI bleed: Plan: Seems stable. Plan EGD with possible esophageal dilatation tomorrow. Procedure and risks discussed. She agrees Admission and Anticipated Discharge Date Admission Date: December 05, 2023 Subjective Feeling well. No BM since yesterday afternoon. H/H stable but seems to have received on unit last night Physical Exam Physical Exam: She looks well Results & Data Vital Signs (Past 12 Hours) Vital Signs Temp Pulse Pulse Resp BP BP BP 12/07/23 07:36 36.8 C 73 17 146/81 H 12/07/23 07:09 66 12/07/23 03:49 36.4 C L 70 16 136/81 12/07/23 01:47 36.4 C L 64 18 119/74 12/07/23 01:15 36.3 C L 67 16 117/68 12/07/23 00:15 36.3 C L 65 18 116/72 12/06/23 23:45 36.7 C 70 18 130/78 12/06/23 23:30 36.7 C 67 18 129/79 12/06/23 23:15 36.5 C 94 H 18 159/90 H 12/06/23 22:44 36.8 C 71 18 124/73 12/06/23 22:04 67 Pulse Ox O2 Del Method 12/07/23 07:36 96 Room Air 12/07/23 07:09 12/07/23 03:49 93 Room Air 12/07/23 01:47 94 12/07/23 01:15 93 12/07/23 00:15 93 12/06/23 23:45 95 12/06/23 23:30 95 12/06/23 23:15 94 12/06/23 22:44 94 Room Air 12/06/23 22:04 (1) GI bleed GI bleed type/associated pathology: unspecified gastrointestinal hemorrhage type Qualified Code(s): K92.2 - Gastrointestinal hemorrhage, unspecified
[2023-12-07 10:25] LABS: Hematocrit (blood only) 28.3 % (37.0-47.0); Hemoglobin 8.9 g/dl (12.0-16.0); Mean Corpuscular Hemoglobin 28.3 pg (25.0-34.0); Mean Corpuscular Hgb Conc 31.4 g/dL (32.0-36.0); Mean Corpuscular Volume 89.8 fL (80.0-100.0); Mean Platelet Volume 10.4 fL (9.4-12.4); Platelet Count 190 K/uL (130-400); RDW Coefficient of Variation 17.4 % (11.5-14.5); RDW Standard Deviation 55.3 fL (36.4-46.3); Red Blood Count 3.15 M/uL (4.20-5.40); White Blood Count 4.38 K/ul (4.8-10.8)
[2023-12-08 05:15] LABS: Basophils # (auto) 0.06 K/uL (0.00-0.20); Basophils % (auto) 1.2 %; Eosinophils # (auto) 0.35 K/uL (0.00-0.50); Eosinophils % (auto) 6.9 %; Hematocrit (blood only) 28.3 % (37.0-47.0); Hemoglobin 8.9 g/dl (12.0-16.0); Immature Granulocytes # (auto) 0.02 K/uL (0.01-0.20); Immature Granulocytes % (auto) 0.4 %; Lymphocytes % (auto) 23.5 %; Mean Corpuscular Hemoglobin 28.4 pg (25.0-34.0); Mean Corpuscular Hgb Conc 31.4 g/dL (32.0-36.0); Mean Corpuscular Volume 90.4 fL (80.0-100.0); Mean Platelet Volume 10.8 fL (9.4-12.4); Monocytes # (auto) 0.63 K/uL (0.11-0.59); Monocytes % (auto) 12.4 %; Neutrophils # (auto) 2.84 K/uL (1.40-6.50); Neutrophils % (auto) 55.6 %; Platelet Count 202 K/uL (130-400); RDW Coefficient of Variation 17.3 % (11.5-14.5); RDW Standard Deviation 55.2 fL (36.4-46.3); Red Blood Count 3.13 M/uL (4.20-5.40)
[2023-12-08 05:35] LABS: Albumin Globulin Ratio 1.2 (0.9-2); Albumin Level 3.4 gm/dl (3.4-5.0); BUN Creatinine Ratio 9.2 (10-20); Bilirubin,Total 0.5 mg/dl (0.2-1.0); Calcium 9.6 mg/dl (8.6-10.3); Creatinine Clr Calc Pharmacy 40.3 ml/min; Est GFR (African American) 50.5 ml/min; Est GFR (Non-African American) 43.6 ml/min; Globulin 2.9 gm/dl (2.5-4.0); Magnesium 1.7 mg/dl (1.7-2.4); Phosphorus 3.2 mg/dl (2.5-4.9); Potassium 3.9 mmol/L (3.5-5.1); Total Protein 6.3 gm/dl (6.0-8.3)
--- NOTE | 2023-12-08 09:35 | History & Physical Bridge Note ---
Date of Service December 08, 2023 History & Physical Bridge Note I have examined the patient, reviewed the History & Physical and in the interval since the performance of the History & Physical I have noted the following changes of clinical significance: no changes noted. Patient is a 78 year old female with history of eliquis and advil use, who was admitted with a worse anemia than she usually has. she tells me she has not had any bowel movements since admission. No SOB, chest pain, or other GI concerns at this time. 12/08/23 hgb 8.9. INR 1.0. she has been NPO since midnight. will plan for EGD today to chungjohn evaluate. Supervising Physician Co-Signing Physician Notes I saw and examined this patient with our nurse practitioner and agree with her assessment and plan.
[2023-12-08] MEDS: SODIUM CHLORIDE 0.9% 500 ML IV SCH (13:32)
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
--- NOTE | 2023-12-08 14:12 | GI REPORT ---
[facility] Patient: ANTON JOHN : 1945 Sex at : Female Age: 78 Years Procedure: Upper GI endoscopy Date: 12/08/2023 Attending Physician: Poncho Galaviz MD Referring MD: Yasmine Ventura MD Indications: - Melena Medications: - Monitored Anesthesia Care Complications: - No immediate complications. Procedure: - Prior to the procedure, a History and Physical was performed, and patient medications and allergies were reviewed. The patient's tolerance of previous anesthesia was also reviewed. The risks and benefits of the procedure and the sedation options and risks were discussed with the patient. All questions were answered, and informed consent was obtained. [Anticoagulant Agents] [Days Prior to Procedure]. [ASA Grade]. After reviewing the risks and benefits, the patient was deemed in satisfactory condition to undergo the procedure. - The egd scope was introduced through the mouth and advanced to the second part of the duodenum. - The upper GI endoscopy was accomplished without difficulty. - The patient tolerated the procedure well. Findings: - The examined esophagus was normal. - The entire examined stomach was normal. - One small non-bleeding angioectasia was found in the second portion of the duodenum. Impression: - Normal esophagus. - Normal stomach. - One non-bleeding angioectasia in the duodenum. - No specimens collected. Recommendation: - Resume previous diet. - Patient has a contact number available for emergencies. The signs and symptoms of potential delayed complications were discussed with the patient. Return to normal activities tomorrow. Written discharge instructions were provided to the patient. Procedure Code(s): - 10580, Esophagogastroduodenoscopy, flexible, transoral; diagnostic, including collection of specimen(s) by brushing or washing, when performed (separate procedure) Diagnosis Code(s): - K92.1, Melena (includes Hematochezia) - K31.819, Angiodysplasia of stomach and duodenum without bleeding CPT(R) - 2023 copyright [employer]. All Rights Reserved. The CPT codes, CCI edits and ICD codes generated are intended as suggestions and were generated based on input data. These codes are preliminary and upon non morse intercept technician review may be revised to meet current compliance and payer requirements. The provider is responsible for the final determination of appropriate codes, and modifiers. Poncho Galaviz MD This document has been electronically signed. Note Initiated:12/08/2023 Note Completed:12/08/2023 2:12 PM [id number]
[2023-12-08] MEDS: LIDOCAINE 2% 2 ML VIAL/AMP(20MG/ML) INFIL ONE ×2 (14:58→14:59)
[2023-12-08] MEDS: PROPOFOL IV EMULSION 10 MG/ML 20 ML VIAL IV ONE (14:59)
--- NOTE | 2023-12-08 15:38 | Hospitalist Progress Note ---
Date of Service December 08, 2023 Assessment & Plan (1) Anemia: (2) Basilar artery thrombosis: (3) Hypertension: (4) HLD (hyperlipidemia): (5) Type 2 diabetes mellitus with chronic kidney disease: Plan 78-year-old female with a past medical history significant for recently diagnosed transverse sinus thrombosis at [facility] in October of this year (started on Eliquis), DM type II, hypothyroidism, hyperlipidemia, and hypertension who presented to the [facility] ED on 12/05/2023 after outpatient labs noted A hemoglobin of 6.4 (down from approximately 10 as of last month).Pt was having melanotic stool since being started on anticoagulation last month during her admission at [facility] after her diagnosis of basilar artery thrombosis. Patient was also taking ibuprofen and Advil PM on a daily basis. Per discussion with [place] neurosurgery: > Plan at this time is to hold the patient's Eliquis but continue her daily 81 mg aspirin until she is stable from her GI bleed > Once patient is stable from her GI bleed her Eliquis can be restarted > If patient remains stable and without neurologic symptoms she can have repeat CTA/CTV of the head/brain in approximately 1 month outpatient > If patient were to develop new neurologic symptoms then stroke alert should be started for further evaluation. If new clinical findings would warrant they would then transfer the patient to [facility] for further intervention. 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 during her admission at [facility] on 10/29/2023 - 11/01/2023 Had been started on Eliquis and 81 mg aspirin since her last admission to [facility] After discussions with [place] neurosurgery we will continue 81 mg aspirin daily while holding her Eliquis for now If any new neurologic symptoms present stroke alert should be started for further evaluation and discussion with [place] neurosurgery to determine if transfer will be needed for any intervention Patient's Eliquis should be restarted when she is stable from her GI bleed The patient remained stable throughout this admission she should have repeat CTA/CTV obtained approximately 1 month for further evaluation #Hypertension: Patient has been stable Will hold patient's losartan and torsemide for now to prevent hypotension Will continue metoprolol for now #HLD (hyperlipidemia): Continue statin #Type 2 diabetes mellitus with chronic kidney disease: Hold metformin Monitor BSG every 6 hours while NPO, goal is [id number] Start CF of 50 and CR of 15 every 6 hours for now Adjust regimen as needed #Dispo: potential d/c on 12/09/23 Admission and Anticipated Discharge Date Admission Date: December 05, 2023 Subjective No acute events overnight Currently no new complaints no BM now since yesterday Physical Exam Physical Exam: Gen: no acute distress HEENT: NC/AT, MMM CVS: s1s2nl, RRR Lungs: CTAB Abd: soft, NT, nl BS Ext: no edema Neuro: ambulating well Psych: pleasant, communicating appropriately Results & Data Results & Data Vital Signs (Past 12 Hours) Vital Signs Temp Pulse Pulse Resp BP Pulse Ox O2 Del Method 12/08/23 14:56 36.6 C 68 18 148/79 H 95 Room Air 12/08/23 14:44 67 18 148/93 H 95 Room Air 12/08/23 14:29 71 18 154/82 H 94 Room Air 12/08/23 14:14 83 20 163/87 H 98 Room Air 12/08/23 13:14 36.8 C 75 16 160/89 H 95 Room Air 12/08/23 11:22 36.7 C 68 18 147/82 H 95 Room Air 12/08/23 07:30 68 12/08/23 07:07 36.7 C 68 17 149/79 H 96 Room Air PG Care Time/CCT Total # of Minutes Spent Total Time Spent with Patient: Total time spent is greater than 50% in coordination of care (as documented) at patient's floor/unit and/or counseling patient: Coding Level of Care Code 34357 SUB INP/OBS CARE 2/35MIN Diagnoses Anemia D64.9 Basilar artery thrombosis I65.1 Essential hypertension I10 Hypertension type: essential hypertension Hyperlipidemia, unspecified hyperlipidemia type E78.5 Hyperlipidemia type: unspecified Type 2 diabetes mellitus with chronic kidney disease E11.22 (3) Hypertension Hypertension type: essential hypertension Qualified Code(s): I10 - Essential (primary) hypertension (4) HLD (hyperlipidemia) Hyperlipidemia type: unspecified Qualified Code(s): E78.5 - Hyperlipidemia, unspecified
[2023-12-08] MEDS: APIXABAN 5 MG TABLET PO SCH (20:06)
[2023-12-09 06:24] LABS: Basophils # (auto) 0.05 K/uL (0.00-0.20); Eosinophils # (auto) 0.28 K/uL (0.00-0.50); Eosinophils % (auto) 5.7 %; Hematocrit (blood only) 30.1 % (37.0-47.0); Hemoglobin 9.5 g/dl (12.0-16.0); Immature Granulocytes # (auto) 0.02 K/uL (0.01-0.20); Immature Granulocytes % (auto) 0.4 %; Lymphocytes # (auto) 0.78 K/uL (1.20-3.40); Lymphocytes % (auto) 15.9 %; Mean Corpuscular Hemoglobin 28.9 pg (25.0-34.0); Mean Corpuscular Hgb Conc 31.6 g/dL (32.0-36.0); Mean Corpuscular Volume 91.5 fL (80.0-100.0); Mean Platelet Volume 10.4 fL (9.4-12.4); Monocytes # (auto) 0.67 K/uL (0.11-0.59); Monocytes % (auto) 13.6 %; Neutrophils # (auto) 3.12 K/uL (1.40-6.50); Neutrophils % (auto) 63.4 %; Platelet Count 179 K/uL (130-400); RDW Standard Deviation 55.3 fL (36.4-46.3); Red Blood Count 3.29 M/uL (4.20-5.40); White Blood Count 4.92 K/ul (4.8-10.8)
[2023-12-09 07:01] LABS: Creatinine Clr Calc Pharmacy 43.8 ml/min; Est GFR (African American) 56.7 ml/min; Est GFR (Non-African American) 48.9 ml/min
[2023-12-09 07:19] VITALS: RESP 18; TEMP 98.2
[2023-12-09] MEDS: PANTOprazole 40 MG TAB PO SCH (08:47)
--- NOTE | 2023-12-09 10:40 | Discharge Summary ---
Discharge Summary Date of Service December 09, 2023 Principal Dx & Hospital Course #1 = Principal Diagnosis (1) Anemia: - Currently stable and nontoxic-appearing - prior to admission, patient was taking daily ibuprofen and Advil for pain, along with Eliquis and aspirin - history of melanotic stools for approximately one month prior to admission, resolved - On admission Hgb 6.4, hct 21.8; trending upward currently hgb 9.5, hct 30.1 - s/p 3 units of PRBC GI performed EGD (12/07) that demonstrated small non-bleeding angioectasia in the second portion of the duodenum - PT/INR within normal range on 12/08 GI cleared patient to resume home aspirin 81 mg on 12/07 - was given pantoprazole PO during hosptial stay, patient to continue home omeprazole upon discharge (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 during her admission at [facility] on 10/29/2023 - 11/01/2023 was started on Eliquis and 81 mg aspirin 10/31 - discussion with [facility] on admission recommended: - Hold Eliquis until GI bleed stable, continue aspirin 81 mg If any new neurologic symptoms present stroke alert should be started for further evaluation and discussion with [facility] to determine if transfer will be needed for any intervention The patient remained stable throughout this admission she should have repeat CTA/CTV obtained approximately 1 month for further evaluation - showed no signs of new neurologic symptoms during hospital stay - patient is scheduled for follow up on February 03 with [facility] - discussion with [facility] upon discharge on 12/08: - recommended to restart Eliquis in 7 days - continue aspirin 81 mg and restart Eliquis in 7 days (3) Hypertension: stable - losartan and torsemide held during admission to prevent hypotension, resume upon discharge Continue metoprolol (4) HLD (hyperlipidemia): - continue statin (5) Type 2 diabetes mellitus with chronic kidney disease: - Insulin during admission - glucose stable during hospital course - home metformin held during hospital stay, continue upon discharge Plan Code status: FULL CODE Patient stated she has not had a bowel movement since Tuesday 12/05. She was restarted on a regular diet 12/07, was previously on clear liquids. Patient agreeable to take a stool softener this evening is she does not have a bowel movement upon returning home. Patient to be discharged home. Admission HPI Per Admitting Provider Abi is a 78-year-old female with a past medical history significant for recently diagnosed transverse sinus thrombosis at [facility] in October of this year (started on Eliquis), DM type II, hypothyroidism, hyperlipidemia, and hypertension who presented to [facility] ED on 12/05/2023 after outpatient labs noted A hemoglobin of 6.4. Patient remained stable in the ED. Repeat labs on arrival to the ED shows hemoglobin of 6.7 (down from 10 as of 11/04/2023), TSH of 0.176. No imaging was obtained while in the ED. Prior to admission the patient was given an IV pantoprazole bolus and continued on pantoprazole drip. Patient was sitting in bed in no acute distress at time of exam. She confirms the above history of the transverse sinus venous thrombosis being diagnosed at [facility] last month. Confirms that she was initially started on a heparin drip and monitored with repeat imaging which showed stability. At that time she was discharged on aspirin and Eliquis along with a stool softener as a did not want her to strain while having bowel movements. Since being discharged from [facility] but patient has been experiencing increased bilateral lower extremity swelling. She explains that her diuretic had been hel d by her PCP due to concerns for elevated creatinine. She called her PCP yesterday due to wanting to restart her torsemide which is why routine labs were obtained prior to restart the torsemide. When asked about recent bloody or melanotic stool, she states that she has been having melanotic stool since anticoagulation was started during her hospitalization at [facility] last month. When asked, she states that she did not tell providers at [facility] as she thought this was just a normal side effect from the anticoagulation. When asked, she states that she takes a 200 mg tab of ibuprofen during the day for joint pain and normally takes 1 tab of Advil PM nightly for sleep. She had a tab of Advil PM last night and a tab of ibuprofen this morning along with her a.m. dose of Eliquis. Denies recent headaches, changes in vision, hearing, taste, smell, paresthesias, chest pain, shortness of breath, abdominal pain, nausea/vomiting, diarrhea, dysuria/hematuria, or recent trauma. She confirms that she is a full code and would want her daughter to make medical decisions for her if she cannot make them herself. Due to the complex nature of this case I did discuss the patient with the on- call neurosurgeon at [facility], Dr. Daryl Bravo. He reviewed the patient's last admission and imaging and noted that there was a mistake in the discharge summary. After review of the patient's imaging he confirmed that the patient did not have a transverse sinus thrombosis but had basilar artery thrombosis. At this time he recommended continuing the patient's daily aspirin and holding her Eliquis until she is deemed stable with her current GI bleed. He recommended restarting the patient's Eliquis as soon as possible once she is stable from her GI bleed. If the patient were to become symptomatic with new neurologic symptoms he recommended starting per stroke alert protocol. If she would be experiencing new ischemia then we will transfer to [facility] for further treatment. Please refer to Dr. Felder's attestation for any changes to treatment plan Admission Exam Per Admitting Provider General: In no acute distress, stated age, well-nourished, Nontoxic-appearing HEENT: Normocephalic, atraumatic, no scleral icterus, pupils around round, symmetrical, and reactive to light, moist mucus membranes, trachea midline, no thyromegaly Chest/Pulm: No respiratory distress, symmetrical chest expansion, clear breath sounds throughout Cardiac: RRR, no murmurs noted Abdomen: Negative for ascites and bruising, normoactive bowel sounds, soft, non- tender to palpation throughout Musculoskeletal: Symmetrical and without signs of acute trauma, upper and lower extremities with full ROM, no atrophy, spasticity, or flaccidity Extremities: Radial, dorsalis pedis, and posterior tibial pulses are intact and symmetrical, 2+ pitting edema in the bilateral lower extremities Skin: Warm, dry, no rashes , lesions, or scars noted Neuro: Alert and oriented to person, place, month, year, and president, no focal defects, CN II-XII tested and intact other than chronic drooping of the left eyelid, no tremors noted Psych: No acute distress, calm and cooperative during the exam Discharge Exam The patient is awake, alert and oriented 3, well developed and well nourished, normocephalic and atraumatic, lying in bed and in no acute distress. Non-toxic appearing. HEENT-mucous membranes moist. Hearing grossly intact. Heart-normal S1 and S2. No murmurs, rubs or gallops. Lungs-clear bilaterally, no respiratory distress, no accessory muscle use. Abdomen-normal bowel sounds and soft. No ascites or bruising. Non-tender. Extremities-no cyanosis or clubbing. +1 pitting edema in bilateral lower extremities. Dermatologic-normal skin turgor and normal color. Rheumatologic-normal range of motion. Psychiatric-normal affect. Discharge Plan Discharge Items Patient Disposition: Home - Self-Care Reason For Visit: ANEMIA, GI BLEED Discharge Diagnosis: 1. Anemia 2. Angiodysplasia of stomach and duodenum without bleeding 3. History of basilar artery thrombosis 4. Hypertension 5. Hyperlipidemia 6. Type 2 Diabetes mellitus with chronic kidney disease Condition on Discharge: Good Activity: Resume your previous activity Non-emergency contact: Primary Care Provider and Neurologist Call non-emergency contact if: you have any medication questions, your symptoms worsen and you have a fever Follow-up/Referrals: Mitzi Marquez MD [Primary Care Provider] - 12/24/23 10:00 am (Hospital follow up scheduled December 23 at 10:00) Diet: Carb Count or DM1 Addtl Attending Provider Instructions: If you do not have a bowel movement this evening upon returning home, take a stool softener as discussed. Continue home medications upon discharge. Your were treated with 3 units of blood during your hospital stay due to anemia. Your lab results and symptoms have since improved. During your upper endoscopy by the GI team, they found a small non-bleeding angioectasia in the second portion of the duodenum. This means that you have a dilated blood vessel in a portion of you small intestine. If you notice dark colored stools, dizziness, fatigue, shortness of breath, pale skin, cold intolerance, or other signs of bleeding/anemia after discharge, call your primary care provider. Continue to follow up with [facility] with your appointment on February 03 as discussed. Eliquis and Aspirin can both cause bleeding, but are necessary for your Basilar artery thrombosis. [facility] recommended to restart your Eliquis 7 days after discharge. Pending Studies at Discharge: No Stand-Alone Forms: My [facility] [email or web address] Medications and DC Order Prescriptions: Continued gabapentin 600 mg tablet 600 mg PO TID Qty: 90 2RF losartan 50 mg tablet 50 mg PO QAM Qty: 90 3RF omeprazole 40 mg capsule,delayed release(DR/EC) 40 mg PO QPM Qty: 90 3RF torsemide 20 mg tablet 20 mg PO QAM Qty: 90 3RF Hold Instructions: MARQUITA Rx Instructions: TAKE 1 TABLET DAILY tramadol 50 mg tablet 50 mg PO BID PRN (Reason: pain) Qty: 30 0RF simvastatin 10 mg tablet 10 mg PO QPM Qty: 90 3RF metoprolol succinate 25 mg tablet extended release 24 hr 25 mg PO DAILY Qty: 90 3RF aspirin [Aspir-81] 81 mg Tablet,Delayed Release (Dr/Ec) 81 mg PO HS Hold Instructions: anemia Rx Instructions: Unable to verify OTC meds at this date/time. cholecalciferol (vitamin D3) [Vitamin D3] 1,000 unit Capsule 1,000 unit PO QAM Rx Instructions: Unable to verify OTC meds at this date/time. Fiber Gummies 2 gram Tablet,Chewable 2 g PO QAM Rx Instructions: Unable to verify OTC meds at this date/time. biotin 1 mg Capsule 1 mg PO QAM Rx Instructions: Unable to verify OTC meds at this date/time. acetaminophen [Tylenol Extra Strength] 500 mg Tablet 1,000 mg PO HS PRN (Reason: Restless Leg(S)) Rx Instructions: Unable to verify OTC meds at this date/time. metformin 500 mg tablet extended release 24 hr 1,000 mg PO QAM Rx Instructions: TAKE 2 TABLETS DAILY multivitamin Tablet 1 tab PO DAILY Rx Instructions: Unable to verify OTC meds at this date/time. levothyroxine [Synthroid] 125 mcg tablet 125 mcg PO DAILY citalopram 20 mg tablet Held Eliquis 5 mg tablet 5 mg PO BID Hold Instructions: Resume on 12/16/23. Discharge Orders: Discharge Order (Routine); Ordered 12/09/23 Ordered By: Tamara Villegas/Other Patient Handouts: GI Bleeding Causes and Tests, Anemia Admission Data Admit Date/Time: 12/05/23 21:39 Attending Provider: Stewart Wolfe Admit Provider: Phoenix Felder Primary Care Provider: Mitzi Marquez Other Providers: Phoenix Felder; Yenifer Hernandez Jr Other Interventions: Discharge Summary Assessment (RN) Last Done: 12/09/23 11:17 Hospital Stay Data Consultations 12/05/23 18:48 ED Decision to Admit Stat 12/05/23 21:50 Consult Gastroenterology Routine Procedures Performed Operation Date: 12/08/23 16:50 Actual Procedures p Esophagogastroduodenoscopy - Poncho Galaviz MD Diagnostic Imagining Performed Laboratory Results WBC 4.92 K/ul (4.8-10.8) 12/09/23 05:59 RBC 3.29 M/uL (4.20-5.40) L 12/09/23 05:59 Hgb 9.5 g/dl (12.0-16.0) L 12/09/23 05:59 Hct 30.1 % (37.0-47.0) L 12/09/23 05:59 MCV 91.5 fL (80.0-100.0) 12/09/23 05:59 MCH 28.9 pg (25.0-34.0) 12/09/23 05:59 MCHC 31.6 g/dL (32.0-36.0) L 12/09/23 05:59 RDW Std Deviation 55.3 fL (36.4-46.3) H 12/09/23 05:59 RDW Coeff of Dalia 17.0 % (11.5-14.5) H 12/09/23 05:59 Plt Count 179 K/uL (130-400) 12/09/23 05:59 MPV 10.4 fL (9.4-12.4) 12/09/23 05:59 Immature Gran % (Auto) 0.4 % 12/09/23 05:59 Neut % (Auto) 63.4 % 12/09/23 05:59 Lymph % (Auto) 15.9 % 12/09/23 05:59 [place] % (Auto) 13.6 % 12/09/23 05:59 Eos % (Auto) 5.7 % 12/09/23 05:59 Baso % (Auto) 1.0 % 12/09/23 05:59 Neut # (Auto) 3.12 K/uL (1.40-6.50) 12/09/23 05:59 Lymph # (Auto) 0.78 K/uL (1.20-3.40) L 12/09/23 05:59 [place] # (Auto) 0.67 K/uL (0.11-0.59) H 12/09/23 05:59 Eos # (Auto) 0.28 K/uL (0.00-0.50) 12/09/23 05:59 Baso # (Auto) 0.05 K/uL (0.00-0.20) 12/09/23 05:59 Immature Gran # (Auto) 0.02 K/uL (0.01-0.20) 12/09/23 05:59 Polychromasia 1+ 12/05/23 18:15 Stomatocytes 1+ 12/05/23 18:15 PT 11.0 Seconds (9.0-12.0) 12/08/23 04:24 INR 1.0 (0.9-1.1) 12/08/23 04:24 APTT 29 Seconds (21-31) 12/05/23 18:15 PTT Ratio 1.1 12/05/23 18:15 Sodium 140 mmol/L (136-145) 12/09/23 05:59 Potassium 4.0 mmol/L (3.5-5.1) 12/09/23 05:59 Chloride 107 mmol/L (98-107) 12/09/23 05:59 Carbon Dioxide 28 mmol/L (21-32) 12/09/23 05:59 Anion Gap 5 (3-11) 12/09/23 05:59 BUN 12 mg/dl (6-23) 12/09/23 05:59 Creatinine 1.09 mg/dl (0.6-1.2) 12/09/23 05:59 Est Cr Clr Drug Dosing 43.8 ml/min 12/09/23 05:59 Est GFR ( Amer) 56.7 ml/min 12/09/23 05:59 Est GFR (Non-Af Amer) 48.9 ml/min 12/09/23 05:59 BUN/Creatinine Ratio 11.0 (10-20) 12/09/23 05:59 Glucose 107 mg/dl (70-99(Fasting)) H 12/09/23 05:59 POC Glucose 141 mg/dl (70-99) H 12/09/23 07:58 Calcium 9.0 mg/dl (8.6-10.3) 12/09/23 05:59 Phosphorus 3.2 mg/dl (2.5-4.9) 12/08/23 04:24 Magnesium 1.7 mg/dl (1.7-2.4) 12/08/23 04:24 Total Bilirubin 0.5 mg/dl (0.2-1.0) 12/08/23 04:24 AST 15 U/L (13-39) 12/08/23 04:24 ALT 9 U/L (7-52) 12/08/23 04:24 Alkaline Phosphatase 140 U/L (34-104) H 12/08/23 04:24 Troponin I High Sens 6.6 pg/ml (0-14) 12/05/23 18:15 Total Protein 6.3 gm/dl (6.0-8.3) 12/08/23 04:24 Albumin 3.4 gm/dl (3.4-5.0) 12/08/23 04:24 Globulin 2.9 gm/dl (2.5-4.0) 12/08/23 04:24 Albumin/Globulin Ratio 1.2 (0.9-2) 12/08/23 04:24 Stool Occult Bld Scrn Positive (Negative) A 12/06/23 Unknown Blood Type A Positive 12/05/23 18:15 Blood Type Recheck A Positive 12/05/23 19:41 Antibody Screen NEGATIVE 12/05/23 18:15 Crossmatch See Detail 12/05/23 18:15 Discharge Instructions Given to Patient (Per Discharging Provider) If you do not have a bowel movement this evening upon returning home, take a stool softener as discussed. Continue home medications upon discharge. Your were treated with 3 units of blood during your hospital stay due to anemia. Your lab results and symptoms have since improved. During your upper endoscopy by the GI team, they found a small non-bleeding angioectasia in the second portion of the duodenum. This means that you have a dilated blood vessel in a portion of you small intestine. If you notice dark colored stools, dizziness, fatigue, shortness of breath, pale skin, cold intolerance, or other signs of bleeding/anemia after discharge, call your primary care provider. Continue to follow up with [facility] with your appointment on February 03 as discussed. Eliquis and Aspirin can both cause bleeding, but are necessary for your Basilar artery thrombosis. [facility] recommended to restart your Eliquis 7 days after discharge. Supervising Physician Co-Signing Physician Notes Patient was seen and examined independently I discussed the case with Tamara YORK I reviewed pertinent past medical social family history and also the plan of care and agree with the plan of care. Patient was seen prior to discharge. Discussion revolved around restarting anticoagulation with her angioectasias seen on endoscopy. This Tirso did phone neurosurgery at [facility] recommending holding the Eliquis for 7 days but restarting the aspirin 81. Patient recently had a basilar artery thrombosis with CVA symptoms and she is at high risk for recurrence. However she has significant GI bleed status post 3 units packed red blood cells and hemoglobin 6.4 on presentation. On examination patient wake alert appropriate. She is not pale she is not tachycardic lungs are clear Patient may discharge home as mentioned on aspirin 81 restarting Eliquis in 7 days. Patiently placed on PPI omeprazole at time of discharge He will require greater than 30 minutes to complete this discharge summary Any exceptions will be noted below Total Time Total Time Spent Total Time Spent (In Minutes): 65 minutes Coding Level of Care Code None Diagnoses Anemia D64.9 Basilar artery thrombosis I65.1 Essential hypertension I10 Hypertension type: essential hypertension Hyperlipidemia, unspecified hyperlipidemia type E78.5 Hyperlipidemia type: unspecified Type 2 diabetes mellitus with chronic kidney disease E11.22
[2023-12-09 11:19] VITALS: BP 137/71; PULSE 69; O2SAT 95
--- NOTE | 2023-12-09 19:15 | Billing Data ---
Date of Service December 09, 2023 Coding Level of Care Code 88019 INP/OBS DISCH >30 MIN
--- NOTE | 2023-12-10 15:40 | Electrocardiogram Report ---
Test Reason : Blood Pressure : */* mmHG Vent. Rate : 87 BPM Atrial Rate : 87 BPM P-R Int : 168 ms QRS Dur : 136 ms QT Int : 392 ms P-R-T Axes : 65 -55 82 degrees QTcB Int : 471 ms Normal sinus rhythm Left axis deviation Left bundle branch block Abnormal ECG When compared with ECG of 17-Jan-2023 06:08, T wave amplitude has increased in Inferior leads T wave inversion less evident in Lateral leads Confirmed by Ruth Ann Burk (Hilary) on 12/06/2023 1:40:58 PM Referred By: Confirmed By: Ruth Ann Burk
== END 2023-12-09 14:22 | disposition home or self-care (01) | DRG 378 ==
LOC: ED 17:42 → SUATTDRO 21:39 → 4W 21:39